=== PATIENT | male | born 1965 | race Two or more races ===

== ENCOUNTER 2020-05-08 06:35 | Outpatient (REF) | payer OTHER, SELFPAY ==
[2020-05-08 07:56] LABS: Alanine Aminotransferase 32 U/L (0-40); Albumin Level 4.2 g/dL (3.5-5.0); Alkaline Phosphatase 53 U/L (39-117); Anion Gap 12 (12-20); Aspartate Amino Transferase 23 U/L (5-37); Blood Urea Nitrogen 15 mg/dL (9-16); Calcium 8.7 mg/dL (8.4-10.2); Carbon Dioxide 28 mmol/L (22-29); Chloride 104 mmol/L (96-108); Cholesterol 215 mg/dL; Estimated Glomerular Filt Rate > 60; Glucose Fasting 98 mg/dL (60-99); HDL Cholesterol 37 mg/dL; LDL Cholesterol Calculated 149 mg/dl; Potassium 4.5 mmol/l (3.3-5.1); Sodium 139 mmol/L (135-145); Total Protein 7.1 g/dL (6.5-8.0); Triglycerides 149 mg/dL
== END 2020-05-08 06:36 | disposition home or self-care (01) ==
LOC: HO.LAB 06:35
PROVIDERS: PCP Internal Medicine; Visit Provider Internal Medicine
DX: E78.00 Pure hypercholesterolemia, unspecified (principal)
CPT/HCPCS: 80053; 80061

== ENCOUNTER 2021-05-07 06:48 | Outpatient (REF) | payer OTHER, SELFPAY ==
[2021-05-07 07:46] LABS: Alanine Aminotransferase 27 U/L (0-40); Albumin Level 4.3 g/dL (3.5-5.0); Alkaline Phosphatase 55 U/L (39-117); Anion Gap 11 (12-20); Aspartate Amino Transferase 17 U/L (5-37); Bilirubin Total 0.7 mg/dL (0.0-1.0); Blood Urea Nitrogen 16 mg/dL (9-16); Calcium 9.3 mg/dL (8.4-10.2); Carbon Dioxide 28 mmol/L (22-29); Chloride 107 mmol/L (96-108); Cholesterol 199 mg/dL; Estimated Glomerular Filt Rate > 60; Glucose Fasting 109 mg/dL (60-99); HDL Cholesterol 37 mg/dL; LDL Cholesterol Calculated 134 mg/dl; Sodium 141 mmol/L (135-145); Triglycerides 141 mg/dL
== END 2021-05-07 06:49 | disposition home or self-care (01) ==
LOC: HO.LAB 06:48
PROVIDERS: PCP Internal Medicine; Visit Provider Internal Medicine
DX: E78.5 Hyperlipidemia, unspecified (principal)
CPT/HCPCS: 36415; 80053; 80061

== ENCOUNTER 2022-04-25 09:24 | Emergency (ER) | payer OTHER, SELFPAY ==
[2022-04-25 09:47] VITALS: BP 149/87; PULSE 88; RESP 16; TEMP 38.3; O2SAT 97; BMI 32.3
[2022-04-25] MEDS: Ibuprofen 600 MG TABLET PO (09:57)
[2022-04-25 10:12] LABS: COVID-19 Test Positive (Negative)
[2022-04-25 10:21] LABS: IDNOW Serial# 16C4AD1C; Influenza A Negative (Negative); Influenza B2 Negative (Negative)
--- NOTE | 2022-04-25 10:29 | ED_ITS ---
HPI - General Adult General Chief complaint: Upper Respiratory Symptoms Stated complaint: Body pain, chills Time Seen by Provider: 04/25/22 10:28 Source: patient Mode of arrival: ambulatory Limitations: no limitations History of Present Illness HPI narrative: Patient is a 57 year old assigned male at with a history of dyslipidemia and ED presenting to the emergency department today feeling generally unwell. Patient states that since yesterday he has felt generally unwell. Patient states that he has been recently exposed to a confirmed COVID-19 positive individual. Patient denies any dizziness, lightheadedness, abdominal pain, nausea, vomiting, fever, blurry vision, double vision, loss of vision, chest pain, difficulty breathing, shortness of breath, back pain, night sweats, pain with urination, increased urinary frequency, increased urinary urgency, blood in his urine or stool, syncope or a near syncopal episode, recent trauma or falls, bowel incontinence, bladder incontinence, bowel retention, bladder retention, or any other complaints at this time. Onset (ago): day(s) (1) Severity: mild Severity scale (1-10): 2 Relieving factors: none Exacerbating factors: none Associated symptoms: cough and fever/chills Treatments prior to arrival: none Related Data Home Medications Medication Instructions Recorded Confirmed No Known Home Meds 05/08/21 05/08/21 Allergies Allergy/AdvReac Type Severity Reaction Status Date / Time No Known Allergies Allergy Verified 05/08/21 09:21 [No Known Allergies*] Review of Systems Constitutional: Constitutional: Reports no additional constitutional complaints, Reports chills, Denies fever(s) and Denies night sweats Eyes: Eyes: Reports no additional eye complaints, Denies blurry vision, Denies change in vision, Denies diplopia, Denies eye discharge, Denies loss of vision and Denies eye pain ENT: Denies dizziness Cardiovascular: Cardiovascular: Reports no additional cardiovascular complaints, Denies chest pain, Denies lightheadedness, Denies Loss of Consciousness and Denies dyspnea Respiratory: Respiratory: Reports no additional respiratory complaints, Reports cough and Denies dyspnea Gastrointestinal: Gastrointestinal: Reports no additional gastrointestinal complaints, Denies abdominal pain, Denies melena, Denies hematochezia, Denies change in bowel habits and Denies change in stool character Genitourinary: Genitourinary: Reports no additional male genitourinary complaints, Denies hematuria, Denies oliguria, Denies difficulty urinating, Denies dysuria, Denies urinary frequency, Denies urinary hesitancy, Denies urinary incontinence and Denies urinary urgency Musculoskeletal: Musculoskeletal: Reports no additional musculoskeletal complaints, Denies numbness and Denies tingling Neurologic: Denies dizziness, Denies loss of vision, Denies numbness and Denies tingling Psychiatric: Psychiatric: Reports no additional psychiatric complaints Endocrine: Endocrine: Reports no additional endocrine complaints Hematologic/Lymphatic: Hematologic/Lymphatic: Reports no additional hematologic/lymphatic complaints Allergic/Immunologic: Allergic/Immunologic: Reports no additional allergic/immunologic complaints [facility] Past Medical History Attestation statement: The following information was validated with the patient. Source: old records reviewed Medical History Dyslipidemia Erectile dysfunction Surgical History History of colonoscopy History of laparoscopic cholecystectomy History of removal of cyst Family History Family History Father Prostate cancer Mother CVD (cardiovascular disease) Maternal Uncle Colon cancer Paternal Uncle Colon cancer Social History Social History Housing: House Alcohol intake: current Alcohol intake frequency: a few times a month Alcohol type: beer Patient Tobacco Use Status: Never used Tobacco e-Cigarette/Vaping Use: Never Used Second Hand Smoke Exposure: No Advance Directives: No service: No Current occupational status: employed Current occupational exposures/hazards: No Physical Exam ED Vital Signs: Vital Signs - 24 hr 04/25/22 09:47 Temperature 101.0 F H Pulse Rate 88 Respiratory Rate 16 Blood Pressure 149/87 H Pulse Oximetry 97 Oxygen Delivery Method Room Air BMI result Body Mass Index 32.3 Const General: cooperative, no acute distress, alert and awake Nutritional Appearance: well nourished Orientation/consciousness: patient oriented x3 Limitations: no limitations HENMT Head: Yes normal to inspection and Yes atraumatic Ears: hearing grossly normal bilaterally and external ears normal General nose exam: Normal external nose present, no nasal discharge noted and no epistaxis Face and sinus: Yes normal facial exam, No abrasion and No laceration Mouth: Normal oral and palatal mucosa present, no drooling and no muffled voice Eyes General: appearance normal, both eyes and all related structures Periorbital: periorbital findings normal Eyelids: Yes eyelids normal Conjunctivae: conjunctivae normal Pupils: Equal, round and reactive pupils present EOM: EOMs intact bilaterally Neck Neck: Yes normal visual inspection, Yes full ROM and Yes no lymphadenopathy Chest Chest palpation & inspection: normal inspection of the chest Resp Effort & Inspection: normal respiratory effort and able to speak in complete sentences Auscultation: clear to auscultation bilaterally Cardio Rate: regular rate Rhythm: regular rhythm GI Inspection: Yes normal to inspection Neuro General: patient oriented x3 and moves all extremities Cranial nerves: Yes Equal, round and reactive pupils present Cognition (Neuro): normal cognition Motor exam (neuro): 5/5 motor strength present throughout Sensory Exam: Normal double simultaneous stimulation for sensation Coordination: [id number] test normal Extrem General: Yes normal to inspection, Yes full ROM and Yes capillary refill normal Psych Appearance: grossly normal Mental Status: mental status grossly normal Affect: normal affect Attitude: cooperative Thought process: Normal thought process present Thought content: Normal thought content present Insight: Good insight present (Psych) Medical Decision Making MDM Narrative Medical decision making narrative: Patient is a 57 year old assigned male at with a history of dyslipidemia and ED presenting to the emergency department today with a cough and chills. Patient's physical exam was unremarkable. Patient's rapid COVID-19 test was pos itive. I explained my physical exam findings as well as all test results to the patient. I answered all questions asked by the patient. I stressed the importance of the patient taking his medication as prescribed. I stressed the importance of the patient following up with his primary care provider. I stressed the importance of the patient returning to the emergency department immediately if his symptoms were to worsen or if he were to develop any dizziness, shortness of breath, difficulty breathing, chest pain, blurry vision, loss of vision, nausea, vomiting, abdominal pain, fever, chills, back pain, or any other complaints. Patient verbalized agreement and understanding with this treatment plan and discharge. Medical Records Medical records reviewed: Yes I reviewed the patient's medical records. Lab Data Lab results reviewed: Yes I reviewed the patient's lab results. Labs: Lab Results 04/25/22 04/25/22 Range/Units 09:57 09:57 COVID-19 ([facility]) Positive A (Negative) COVID-19 Clin Com See Note Influenza Type A ([facility]) Negative (Negative) Influenza Type B ([facility]) Negative (Negative) Influenza A & B Note See Note Discharge Plan Discharge Clinical Impression: COVID-19 Patient Disposition: Home, Self-Care Instructions: COVID-19 (Coronavirus Disease 2019) (ED) Additional Instructions: Follow up with your primary care provider. Return to the emergency department immediately if your symptoms worsen or if you develop any dizziness, shortness of breath, difficulty breathing, chest pain, blurry vision, loss of vision, nausea, vomiting, abdominal pain, fever, chills, back pain, or any other complaints. Prescriptions: No Action No Known Home Meds Referrals: Karen Lombardi MD [Primary Care Provider] - Stand Alone Forms: Work/School Release Interventions: ED Discharge Assessment Last Done: 04/25/22 10:50 Discharge Date/Time: 04/25/22 10:52 Print Language: German
== END 2022-04-25 10:52 | disposition home or self-care (01) ==
PROVIDERS: Emergency Provider Emergency Medicine; PCP Internal Medicine
DX: U07.1 COVID-19 (principal); R50.9 Fever, unspecified
CPT/HCPCS: 87502; 87635; 99283

== ENCOUNTER 2022-05-20 12:47 | Outpatient (REF) | payer OTHER, SELFPAY ==
--- NOTE | ~2022-05-20 | US_ITS ---
EXAMINATION: US ABDOMEN LIMITED CLINICAL INFORMATION: Umbilical hernia without obstruction or gangrene. COMPARISON: CT abdomen with intravenous contrast dated 05/14/2008. TECHNIQUE: Real-time imaging of the umbilical area. FINDINGS: Imaging over the umbilical region reveals a small umbilical hernia containing intraperitoneal fat and peritoneum. The umbilical hernia is 2.02 cm wide at the neck. US/US abdomen limited IMPRESSION: Small umbilical hernia containing fat and peritoneum.
== END 2022-05-20 12:48 | disposition home or self-care (01) ==
LOC: HO.HMGCX 12:47
PROVIDERS: PCP Internal Medicine; Visit Provider Internal Medicine
DX: K42.9 Umbilical hernia without obstruction or gangrene (principal)
CPT/HCPCS: 76705

== ENCOUNTER 2022-05-22 09:56 | Outpatient (REF) | payer OTHER, SELFPAY ==
[2022-05-22 10:17] LABS: MANUAL DIFF FLAG NO
[2022-05-22 10:30] LABS: Basophils Percent Auto 0.6 % (0-2); Eosinophils Absolute Auto 0.3 X10*3/uL (0.0-0.4); Eosinophils Percent Auto 5.3 % (0-4); Hematocrit 47.8 % (42.0-52.0); Hemoglobin 15.3 g/dl (14.0-18.0); Imm Gran Abs Auto 0.03 X10*3/uL (0.00-0.03); Imm Gran Pct Auto 0.5 % (0.0-0.4); Lymphocytes Absolute Auto 1.6 X10*3/uL (1.2-4.9); Lymphocytes Percent Auto 26.5 % (20-40); Mean Corpuscular Hemoglobin 27.6 pg (27.0-33.0); Mean Corpuscular Volume 86.1 fL (80.0-98.0); Mean Platelet Volume 10.5 fL (9.4-12.4); Monocytes Absolute Auto 0.4 X10*3/uL (0.1-1.2); Monocytes Percent Auto 6.3 % (2-11); Neutrophils Absolute Auto 3.8 x10*3/uL (2.0-8.3); Neutrophils Percent Auto 60.8 % (45-73); Platelet Count 207 X10*3/uL (160-400); Red Blood Count 5.55 X10*6/uL (4.60-5.80); Red Cell Distribution Width 13.1 % (11.0-16.0); White Blood Count 6.2 X10*3/uL (4.8-10.8)
[2022-05-22 10:37] LABS: Estimated Average Glucose 117 mg/dL; Hemoglobin A1c % 5.7 %
[2022-05-22 12:53] LABS: Alanine Aminotransferase 24 U/L (0-40); Albumin Level 4.4 g/dL (3.5-5.0); Alkaline Phosphatase 55 U/L (39-117); Anion Gap 11 (12-20); Aspartate Amino Transferase 17 U/L (5-37); Bilirubin Total 0.8 mg/dL (0.0-1.0); Blood Urea Nitrogen 18 mg/dL (9-16); Calcium 9.4 mg/dL (8.4-10.2); Carbon Dioxide 28 mmol/L (22-29); Chloride 108 mmol/L (96-108); Cholesterol 244 mg/dL; Estimated Glomerular Filt Rate > 60; Glucose Fasting 99 mg/dL (60-99); Glucose Random 99 mg/dL (60-115); HDL Cholesterol 40 mg/dL; LDL Cholesterol Calculated 178 mg/dl; PSA,Total (Free>4and<10) 4.95 ng/mL (0.00-4.00); Sodium 142 mmol/L (135-145); Total Protein 7.3 g/dL (6.5-8.0); Triglycerides 130 mg/dL
[2022-05-24 19:02] LABS: TS Negative Control Passed; TS Panel A 0; TS Panel B 3; TS Positive Control Passed; TSpotTB Negative (Negative)
[2022-05-25 10:44] LABS: Free Prostate Spec Ag 0.8 ng/mL; Percent Free Prostate Spec Ag 17 % (calc) (>25); Prostate Specific Ag Total 4.6 ng/mL (< OR = 4.0)
== END 2022-05-22 09:57 | disposition home or self-care (01) ==
LOC: HO.LAB 09:56
PROVIDERS: PCP Internal Medicine; Visit Provider Surgery
DX: Z00.00 Encounter for general adult medical examination without abnormal findings (principal); Z11.1 Encounter for screening for respiratory tuberculosis; Z12.5 Encounter for screening for malignant neoplasm of prostate; K42.9 Umbilical hernia without obstruction or gangrene; M62.08 Separation of muscle (nontraumatic), other site; E66.01 Morbid (severe) obesity due to excess calories; E78.5 Hyperlipidemia, unspecified
CPT/HCPCS: 36415; 80053; 80061; 83036; 84153; 84154; 85025; 86481; 99202

== ENCOUNTER → 2022-05-28 14:28 | Outpatient (BNVA) | payer OTHER, SELFPAY | PROVIDERS: PCP Internal Medicine; Visit Provider Surgery | DX: K42.9 Umbilical hernia without obstruction or gangrene (principal); E78.00 Pure hypercholesterolemia, unspecified; E78.5 Hyperlipidemia, unspecified | CPT/HCPCS: 99212 ==

== ENCOUNTER 2022-07-02 05:58 | Day surgery (SDC) | payer OTHER, SELFPAY ==
[2022-06-29 13:19] VITALS: BMI 32.4
--- NOTE | 2022-07-01 09:04 | P.CONAN_ITS ---
Documented by User: Lakisha Chawla NP 07/13/22 15:04 HPI - Anesthesia Eval Consult details Narrative: 57yo M for Hernia Repair Umbilical,possible mesh,possible umbilectomy PMFSH Active Problems Active Problems: All Active Problems (Updated 06/29/22 @ 13:19 by Emilia Hi RN) Conjunctivitis (Acute) Blepharitis (Acute) COVID-19 (Acute) Encounter for physical examination (Acute) Umbilical hernia (Acute) Morbid (severe) obesity due to excess calories (Acute) Diastasis recti (Acute) Elevated PSA (Acute) High cholesterol (Acute) Serum lipids high (Acute) Erectile dysfunction (Acute) Dyslipidemia (Acute) Past Medical History Medical History (Updated 07/09/22 @ 15:32 by LEONARD Ball) Dyslipidemia Erectile dysfunction History of COVID-19 Family History Family History Father Prostate cancer Mother CVD (cardiovascular disease) Maternal Uncle Colon cancer Paternal Uncle Colon cancer Surgical History Surgical History (Updated 07/09/22 @ 22:08 by LEONARD Ball) H/O umbilical hernia repair History of colonoscopy History of laparoscopic cholecystectomy History of removal of cyst Social History Social History Housing: House Alcohol intake: current Alcohol intake frequency: a few times a month Alcohol type: beer Patient Tobacco Use Status: Never used Tobacco e-Cigarette/Vaping Use: Never Used Second Hand Smoke Exposure: No service: No Current occupational status: employed Current occupational exposures/hazards: No Cognitive needs: No Hearing needs: No Vision needs: Yes Meds Allergies Allergy/AdvReac Type Severity Reaction Status Date / Time No Known Allergies Allergy Verified 07/10/22 09:54 [No Known Allergies*] Exam Exam Date and Time: July 01, 2022 0904 Height,Weight and Vital Signs: Height 5 ft 4 in Weight 85.729 kg Pertinent Lab Results Pertinent Lab Results: Laboratory Tests 05/22/22 05/22/22 10:16 10:16 WBC 6.2 Hgb 15.3 Hct 47.8 Plt Count 207 Sodium 142 Potassium 5.0 Chloride 108 Carbon Dioxide 28 BUN 18 H Creatinine 0.86 Documented by User: Sharan Jiménez MD 07/14/22 05:08 [facility] Past Medical History Medical History (Updated 07/09/22 @ 15:32 by LEONARD Ball) Dyslipidemia Erectile dysfunction History of COVID-19 Family History Family History Father Prostate cancer Mother CVD (cardiovascular disease) Maternal Uncle Colon cancer Paternal Uncle Colon cancer Family history of problems with anesthesia: No Surgical History Surgical History (Updated 07/09/22 @ 22:08 by LEONARD Ball) H/O umbilical hernia repair History of colonoscopy History of laparoscopic cholecystectomy History of removal of cyst History of Problems with Anesthesia: No Social History Social History Housing: House Alcohol intake: current Alcohol intake frequency: a few times a month Alcohol type: beer Patient Tobacco Use Status: Never used Tobacco e-Cigarette/Vaping Use: Never Used Second Hand Smoke Exposure: No service: No Current occupational status: employed Current occupational exposures/hazards: No Cognitive needs: No Hearing needs: No Vision needs: Yes Meds Allergies Allergy/AdvReac Type Severity Reaction Status Date / Time No Known Allergies Allergy Verified 07/10/22 09:54 [No Known Allergies*] Exam Airway Mallampati Class: II TM Dist: >3cm Neck ROM: Full Heart: RRR Lungs: CTA Assessment and Plan Final Anesthetic Review Family History of Problems with Anesthesia: No History of Problems with Anesthesia: No NPO: Yes ASA Class: II Final Preanesthetic Review: No Changes in Pt Med Stat, Meds/Allgs Chart Reviewed, Consent Obtained/Reviewed and Anes Risks/Benef Reviewed Patient Risk: Intermediate Anesthetic Plan Anesthetic Plan: GA Disposition: Standard PACU
[2022-07-02] VITALS (8 sets, daily range): BP systolic 110–137; BP diastolic 60–80; PULSE 56–81; RESP 16–18; TEMP 36.3–36.5; O2SAT 96–99; BMI 30.9
--- NOTE | 2022-07-02 07:20 | MHC.SHP ---
Pre-Procedural Eval Section A Date of Service: 07/02/22 The patient is an INPATIENT: No The History & Physical has been completed within 30 days and I have reviewed it.: No Section B Chief Complaint: Umbilical hernia without obstruction or gangrene Relevant Family History (Specify if Yes): No Relevant Social History: None Present Medications: see Short Stay Collaborative assessment Medical History: No relevant PMH History of Previous Operations: Relevant previous surgery/procedure and date(s) Allergies: Allergies Allergy/AdvReac Type Severity Reaction Status Date / Time No Known Allergies Allergy Verified 05/28/22 14:33 [No Known Allergies*] Review of Systems Sugical H&P ROS: Negative: Constitution, Cardiovascular, Respiratory, Neurological, Psychiatric, Hem-Onc, Allergic/Immunologic, Gastrointestinal, Genitourinary, Musculoskeletal, Integumentary, Endocrine and Eyes/Ears/Nose/Throat Exam Surgical H&P Exam: Normal: HEENT, Normal: Heart, Normal: Lungs, Normal: Extremities, Normal: Skin and Normal: Neurological and Not Evaluated: Abdomen (reducible UH) Plan Diagnosis/Plan: Unchanged I have reviewed the history and physical and performed a pertinent physical examination on my patient. No changes have occurred unless specified. Time Spent With Patient Time: Total time managing care of this patient today ____ minutes.
--- NOTE | 2022-07-02 07:22 | W.PM.OPN ---
Operative Note Operative Note Date of Service: 07/02/22 Narrative: Preop diagnosis: [reducible hernia at umbilicus] Postop diagnosis: [2.5cm umbilical hernia with viable fat] Procedure: [Open umbilical hernia repair of a 2.5 cm hernia with primary closure and onlay mesh] Surgeon: Sebastian Riddle MD Assist: [] Anesthesia: [general LMA and ropivacaine as local] Estimated blood loss: [3cc] Specimen: [none] Intraoperative findings: [The umbilical skin was viable. Viable properitoneal fat was in the hernia and reduced. Primary closure with #1 Polypropylene was performed and polypropylene onlay mesh.] Indications: [The patient is a 57-year-old gentleman who reports a distant history of a laparoscopic cholecystectomy in 2000. The hernia is slowly getting larger and causing trophic skin changes and since it is symptomatic, he is interested in repair. I reviewed options including laparoscopic and open repair and the possible need for mesh as well as the inherent risks of bleeding, infection, hernia recurrence especially if weight gain occurs, mesh complications that could require reoperation, and postoperative activity restrictions. Patient seemed understand and wanted to proceed.] Procedure: [The patient was identified by myself in the preoperative holding area brought into the operating suite and again identified in OR room 3. 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 He was induced in general via LMA was administered with excellent effect. His abdomen was then widely prepped and draped with ChloraPrep. An appropriate timeout confirming the procedure the equipment needed was performed and preemptive local of ropivacaine 0.5% infiltrated in the skin and subcutaneous tissues. A curvilinear infraumbilical incision was made sharply and carried down to the anterior fascia. The hernia defect was carefully circumferentially dissected and the properitoneal fat reduced. The hernia sac was excised and discarded in a transverse closure of the 2.5 cm defect was performed and polypropylene onlay mesh technique used. The mesh was secured with 0 polypropylene sutures the subcutaneous tissues closed on the dermis then examined and found to be viable so the skin was closed with interrupted 4-0 Monocryl subcuticular sutures. There was then washed and dried, Mastisol and Steri-Strips applied with a cotton ball in the umbilicus and a Tegaderm. Patient tolerated the procedure well and was sent to the recovery in stable condition.]
[2022-07-02] MEDS: oxyCODONE HCl Immed Release 5 MG TABLET PO (09:07)
[2022-07-02] MEDS: Acetaminophen 325 MG TABLET 650 MG PO (09:15)
== END 2022-07-02 10:41 | disposition home or self-care (01) ==
PROVIDERS: PCP Internal Medicine; Visit Provider Surgery
PROC: (CPT 49591; principal; 2022-07-02 07:30)
DX: K42.9 Umbilical hernia without obstruction or gangrene (principal); E78.00 Pure hypercholesterolemia, unspecified; N52.9 Male erectile dysfunction, unspecified; Z79.899 Other long term (current) drug therapy; Z90.49 Acquired absence of other specified parts of digestive tract
CPT/HCPCS: 49591; C1781; J0690; J1100; J1885; J2405; J2795; J3010

== ENCOUNTER → 2022-07-09 14:34 | Outpatient (BNVA) | payer OTHER, SELFPAY | PROVIDERS: PCP Internal Medicine; Visit Provider Nurse Practitioner Family | DX: R97.20 Elevated prostate specific antigen [PSA] (principal); N52.9 Male erectile dysfunction, unspecified | CPT/HCPCS: 99202 ==

== ENCOUNTER → 2022-07-10 09:46 | Outpatient (BNVA) | payer OTHER, SELFPAY | PROVIDERS: PCP Internal Medicine; Visit Provider Surgery | DX: Z13.89 Encounter for screening for other disorder (principal) ==

== ENCOUNTER 2022-07-23 13:14 | Outpatient (REF) | payer OTHER, SELFPAY | END 2022-07-23 13:15 | disposition home or self-care (01) | LOC: HO.US 13:14 | PROVIDERS: PCP Internal Medicine; Visit Provider Nurse Practitioner Family | DX: Z13.89 Encounter for screening for other disorder (principal) ==

== ENCOUNTER 2022-08-11 14:23 | Outpatient (REF) | payer OTHER, SELFPAY ==
--- NOTE | ~2022-08-11 | US_ITS ---
EXAMINATION: US PELVIS LIMITED (BLADDER) CLINICAL INFORMATION: Elevated prostate-specific antigen. COMPARISON: None TECHNIQUE: Real-time imaging of the bladder. FINDINGS: BLADDER: Well distended and normal. Bilateral ureteral jets are demonstrated. Prevoid bladder volume is 231 mL. Postvoid bladder volume is 151 mL. Enlarged prostate, volume 102 mL. US/US bladder IMPRESSION: 1. Increased post void urinary bladder volume. 2. Enlarged prostate.
== END 2022-08-11 14:24 | disposition home or self-care (01) ==
LOC: HO.US 14:23
PROVIDERS: Visit Provider Nurse Practitioner Family
DX: R97.20 Elevated prostate specific antigen [PSA] (principal)
CPT/HCPCS: 76857

== ENCOUNTER 2022-08-17 06:05 | Outpatient (REF) | payer OTHER, SELFPAY ==
[2022-08-17 08:43] LABS: PSA,Total (Free>4and<10) 5.26 ng/mL (0.00-4.00)
[2022-08-18 11:23] LABS: Free Prostate Spec Ag 1.1 ng/mL; Percent Free Prostate Spec Ag 22 % (calc) (>25); Prostate Specific Ag Total 4.9 ng/mL (< OR = 4.0)
== END 2022-08-17 06:06 | disposition home or self-care (01) ==
LOC: HO.LAB 06:05
PROVIDERS: PCP Internal Medicine; Visit Provider Nurse Practitioner Family
DX: Z12.5 Encounter for screening for malignant neoplasm of prostate (principal); R97.20 Elevated prostate specific antigen [PSA]; R35.1 Nocturia
CPT/HCPCS: 36415; 84153; 84154; 99212

== ENCOUNTER 2022-11-28 07:12 | Outpatient (REF) | payer OTHER, SELFPAY ==
[2022-11-28 08:47] LABS: PSA,Total (Free>4and<10) 2.57 ng/mL (0.00-4.00)
== END 2022-11-28 07:13 | disposition home or self-care (01) ==
LOC: HO.LAB 07:12
PROVIDERS: PCP Internal Medicine; Visit Provider Nurse Practitioner Family
DX: Z12.5 Encounter for screening for malignant neoplasm of prostate (principal); R97.20 Elevated prostate specific antigen [PSA]
CPT/HCPCS: 36415; 84153

== ENCOUNTER → 2022-12-07 09:03 | Outpatient (BNVA) | payer OTHER, SELFPAY | PROVIDERS: PCP Internal Medicine; Visit Provider Nurse Practitioner Family | DX: N40.0 Benign prostatic hyperplasia without lower urinary tract symptoms (principal); R97.20 Elevated prostate specific antigen [PSA] | CPT/HCPCS: 99212 ==

== ENCOUNTER 2023-05-18 07:15 | Outpatient (AMB) | payer OTHER, SELFPAY ==
[2023-05-18 07:33] VITALS: BP 130/86; BMI 33.1
--- NOTE | 2023-05-18 07:33 | A.OFFPC_ITS ---
Vital Signs 05/18/23 07:33 Height 5 ft 3 in Weight 187 lb BMI 33.1 BP 130/86 Blood Pressure Location Lt brachial Position Sitting Intake Visit Reasons: PE+ NEEDS PHQ9/THRIVE Intake Note: Patient here for a physical exam Egg And Spice Mixer Required: No Accompanied by: Self / Same As Patient Allergies No Known Allergies [No Known Allergies*] Allergy (Verified 05/18/23 07:42) Medication List - Last Reconciled 05/18/23 by Karen Mcintosh MD finasteride 5 mg PO DAILY 90 days ibuprofen 600 mg PO TID PRN 30 days Tobacco use date assessed: 05/18/23 Dental Screening Dental Screen Date: 05/18/23 Did you have a dental visit in the last 12 months?: Yes Did you have a dental problem in the last 6 months where you did not have access to dental care?: No Was dental information given to patient?: Patient has dentist HPI HPI Comments History of Present Illness Details This is a 58-year-old male that comes for his physical exam. Last colonoscopy was 2016 next colonoscopy should be 2026. Complains about bilateral knee pain and lumbar pain that does radiate to the legs. Happens on. Aggravated by activity no fever, bowel or bladder incontinence. PFSH Medical History History of COVID-19 Erectile dysfunction Dyslipidemia Surgical History H/O umbilical hernia repair History of colonoscopy History of removal of cyst History of laparoscopic cholecystectomy Family History Father Prostate cancer Mother CVD (cardiovascular disease) Maternal Uncle Colon cancer Paternal Uncle Colon cancer Housing: House Alcohol intake: current Alcohol intake frequency: a few times a month Alcohol type: beer Patient Tobacco Use Status: Never used Tobacco e-Cigarette/Vaping Use: Never Used Second Hand Smoke Exposure: No service: No Current occupational status: unemployed Current occupational exposures/hazards: No Cognitive needs: No Hearing needs: No Vision needs: Yes Questionnaire PHQ-9 Over the last 2 weeks, how often have you been bothered by any of the following problems? 1. Little interest or pleasure in doing things: not at all 2. Feeling down, depressed, or hopeless: not at all 3. Trouble falling or staying asleep, or sleeping too much: not at all 4. Feeling tired or having little energy: not at all 5. Poor appetite or overeating: not at all 6. Feeling bad about yourself - or that you are a failure or have let yourself or your family down: not at all 7. Trouble concentrating on things, such as reading the newspaper or watching television: not at all 8. Moving or speaking so slowly that other people could have noticed. Or the opposite - being so fidgety or restless that you have been moving around a lot more than usual: not at all 9. Thoughts that you would be better off or of hurting yourself in some way: not at all Total score: 0 Depression Screening Interpretation: Negative Depression Screening Done: Yes 83394 - PHQ-9 Billing: Yes Source: Developed by Drs. Jerald Sutton, Luna Anderson, Guillaume Álvarez and colleagues, with an educational shad from [employer]. Thrive Questionnaire Date Thrive assessed: 05/18/23 I am a: Patient What is your living situation today?: I have a steady place to live Within the past 12 months, did the food you bought not last and you didn't have the money to get more?: Never true Within the past 12 months, did you worry whether your food would run out before you got money to buy more?: Never true Do you have trouble paying for medicines?: No Do you have trouble getting transportation to medical appointments?: No Do you have trouble paying your heating and electricity bill?: No Do you have trouble taking care of your child, family member or friend?: No Do you have trouble with day-to-day activities such as bathing, preparing meals, shopping, managing finances, etc.?: No Are you currently unemployed and looking for a job?: No Are you interested in more education?: No Please select the resources that you would like help with: None Currently or been in a relationship where the following occur: no concerns reported AUDIT C Alcohol Use Questionnaire (AUDIT-C) 1. How often do you have a drink containing alcohol?: Monthly or less 2. How many drinks containing alcohol do you have on a typical day when you are drinking?: 1 or 2 3. How often do you have six or more drinks on one occasion?: Never Total Score: 1 Score Reviewed/Action Taken: Yes NOLVIA-7 AMB Questionnaire NOLVIA-7 Date NOLVIA - 7 assessed: 05/18/23 Feeling nervous, anxious, or on edge: 0 = Not at all Not being able to stop or control worryin = Not at all Worrying too much about different things: 0 = Not at all Trouble relaxin = Not at all Being so restless that it is hard to sit still: 0 = Not at all Becoming easily annoyed or irritable: 0 = Not at all Feeling afraid as if something awful might happen: 0 = Not at all Total NOLVIA-7 score (0-4 normal; 5-9 mild; 10-14 moderate; 15-21 severe): 0 Source: Developed by Drs. Jerald Sutton, Luna Anderson, Guillaume Álvarez and colleagues, with an educational shad from [employer]. NOLVIA-7 Assessment Billing NOLVIA-7 Assessment Tool: NOLVIA-7 Assessment 91882 Review of Systems Const All systems reviewed & are unremarkable except as noted in HPI and below Eyes Reports no additional complaints, Denies change in vision and Denies other visual disturbances Card Denies chest pain at rest, Denies chest pain with activity, Denies edema, Denies irregular heart rhythm, Denies claudication, Denies dyspnea, Denies dyspnea on exertion, Denies orthopnea, Denies paroxysmal nocturnal dyspnea and Denies slow heart rate Resp Denies cough, Denies dyspnea and Denies dyspnea on exertion GI Denies abdominal pain, Denies change in bowel habits, Denies excessive flatus, Denies nausea and Denies vomiting Denies urinary hesitancy, Denies urinary incontinence and Denies urinary urgency Musc Denies abnormal gait, Reports back pain, Denies atrophy, Denies deformity, Reports arthralgias and Denies limited range of motion Skin/Breast Denies bleeding lesions, Denies changing lesions and Denies rash Neuro Denies abnormal gait, Denies behavioral changes, Denies confusion and Denies lack of coordination Psych Denies behavioral changes and Denies confusion Physical exam (Primary Care) Vital Signs: Last Vital Signs BP 130/86 05/18/23 07:33 BMI result Body Mass Index 33.1 Tobacco/Smoking Status: Tobacco use Status Tobacco use date assessed 05/18/23 05/18/23 07:37 Patient Tobacco Use Status Never used Tobacco 05/18/23 07:37 e-Cigarette/Vaping Use Never Used 05/18/23 07:37 PHQ-9: PHQ-9 Score PHQ-9: Total score 0 05/18/23 08:19 Depression Screening Interpretation: Negative Thrive Assessment: Date of Thrive Assessment Date Thrive assessed 05/18/23 05/18/23 07:37 Currently or been in a relationship where the following occur: no concerns reported Const General: No confusion Orientation/consciousness: patient oriented x3 and No confusion HENMT Head: Yes normal to inspection, Yes normocephalic and Yes atraumatic Ears: external ears normal Eyes General: appearance normal, both eyes and all related structures Eyelids: Yes eyelids normal Conjunctivae: conjunctivae normal Neck Neck: Yes normal visual inspection and Yes supple Resp Effort & Inspection: normal respiratory effort Auscultation: clear to auscultation bilaterally Cardio Jugular venous distension: no JVD Rate: regular rate Rhythm: regular rhythm Heart sounds: S1 normal heart sound present and S2 normal heart sound present GI Inspection: Yes normal to inspection Palpation (GI): Soft to palpation and nontender Auscultation: normal bowel sounds Skin General skin exam: no rashes or lesions noted Neuro General: patient oriented x3, no focal motor deficits and No confusion Extrem General: Yes full ROM Psych Appearance: grossly normal Office Procedures Flu Questionnaire Does the patient have a severe egg allergy?: No Does the patient have severe life threatening allergies?: No Does the patient have a fever or illness today?: No Has the patient ever had Guillain-[place] Syndrome?: No Has the patient ever had any past reaction to a flu shot?: No Immunizations flu vacc [id number] 6mos up(PF) 60 mcg(15 mcgx4)/0.5 mL IM syringe Performing Provider: Karen Mcintosh MD [facility] Administered by: Lise Welch CMA on 05/18/23 07:52 Dose Route Admin Location Dispensed Lot Number Expiration Date [employer] 0.5 mL IM Left Deltoid 0.5 mL [id number] 12/19/23 59169-016-82 [facility] VIS Given Date VIS Provided VIS Publication Date 05/18/23 Single Vaccine 21 Eligibility Eligibility Date Funding Source Not VFC Eligible 05/18/23 Private Assessment and Plan Assessment & Plan (1) Encounter for physical examination: Code(s): Z00.00 - Encounter for general adult medical examination without abnormal findings Plan: Repeat in a year. Orders: Orders XR lumbar spine 2-3V Today M54.50 - Low back pain, unspecified XR knee LT 2V Today M25.562 - Pain in left knee XR knee RT 2V Today M25.561 - Pain in right knee Lipid Panel Today Z00.00 - Encounter for general adult medical examination without abnormal findings Comprehensive [place]. Panel Fast Today Z00.00 - Encounter for general adult medical examination without abnormal findings Influenza [id number] Immunization Today Z23 - Encounter for immunization Coding Level of Care Code Est Pt Prev Care 40-64y(58656) Diagnoses Encounter for physical examination Z00.00 Additional Codes NOLVIA-7 Assessment Billing - NOLVIA-7 Assessment Tool: NOLVIA-7 Assessment 00045 ([id number]) Time Spent (min) 32
== END 2023-05-18 07:58 | disposition home or self-care (01) ==
PROVIDERS: Visit Provider Internal Medicine
DX: Z00.00 Encounter for general adult medical examination without abnormal findings (principal); Z23 Encounter for immunization
CPT/HCPCS: 90471; 90686; 99396

== ENCOUNTER → 2023-06-07 08:25 | Outpatient (BNVA) | payer OTHER, SELFPAY | PROVIDERS: PCP Internal Medicine; Visit Provider Nurse Practitioner Family ==

== ENCOUNTER 2023-06-08 06:51 | Outpatient (REF) | payer OTHER, SELFPAY ==
--- NOTE | ~2023-06-08 | XR_ITS ---
EXAMINATION: Bilateral knee series CLINICAL INFORMATION: Bilateral knee pain COMPARISON: X-rays of the right knee March 2019. X-rays of the left knee December 2015. TECHNIQUE: 2 views of each knee FINDINGS: Right knee: Bones joints and soft tissues are normal without effusion. Left knee: There is a prominent spur arising from the tibial tuberosity. The bones joints and soft tissues are otherwise unremarkable. XR/XR knee RT 2V IMPRESSION: RIGHT KNEE: Normal. LEFT KNEE: Prominent spur arising from the tibial tuberosity. Unchanged
--- NOTE | ~2023-06-08 | XR_ITS ---
EXAMINATION: Bilateral knee series CLINICAL INFORMATION: Bilateral knee pain COMPARISON: X-rays of the right knee March 2019. X-rays of the left knee December 2015. TECHNIQUE: 2 views of each knee FINDINGS: Right knee: Bones joints and soft tissues are normal without effusion. Left knee: There is a prominent spur arising from the tibial tuberosity. The bones joints and soft tissues are otherwise unremarkable. XR/XR knee LT 2V IMPRESSION: RIGHT KNEE: Normal. LEFT KNEE: Prominent spur arising from the tibial tuberosity. Unchanged
[2023-06-08 08:19] LABS: Alanine Aminotransferase 27 U/L (0-40); Albumin Level 4.2 g/dL (3.5-5.0); Alkaline Phosphatase 54 U/L (39-117); Anion Gap 13 (12-20); Aspartate Amino Transferase 20 U/L (5-37); Blood Urea Nitrogen 18 mg/dL (9-16); Calcium 9.1 mg/dL (8.4-10.2); Carbon Dioxide 26 mmol/L (22-29); Chloride 109 mmol/L (96-108); Cholesterol 227 mg/dL (<200); Estimated Glomerular Filt Rate > 60; Glucose Fasting 101 mg/dL (60-99); HDL Cholesterol 42 mg/dL (>40); LDL Cholesterol Calculated 154 mg/dL (<100); Potassium 4.6 mmol/L (3.3-5.1); Sodium 143 mmol/L (135-145); Total Protein 7.2 g/dL (6.5-8.0); Triglycerides 159 mg/dL (<150)
[2023-06-08 08:37] LABS: PSA,Total (Free>4and<10) 4.19 ng/mL (0.00-4.00)
[2023-06-09 12:14] LABS: Free Prostate Spec Ag 0.5 ng/mL; Percent Free Prostate Spec Ag 12 % (calc) (>25); Prostate Specific Ag Total 4.1 ng/mL (< OR = 4.0)
== END 2023-06-08 06:52 | disposition home or self-care (01) ==
LOC: HO.XRAY 06:51
PROVIDERS: Absent Provider Nurse Practitioner Family; PCP Internal Medicine; Visit Provider Internal Medicine
DX: M25.562 Pain in left knee (principal); M25.561 Pain in right knee; M54.50 Low back pain, unspecified; R97.20 Elevated prostate specific antigen [PSA]; Z12.5 Encounter for screening for malignant neoplasm of prostate; Z00.00 Encounter for general adult medical examination without abnormal findings
CPT/HCPCS: 36415; 72100; 73560; 80053; 80061; 84153; 84154

== ENCOUNTER 2023-06-11 08:24 | Outpatient (AMB) | payer OTHER, SELFPAY ==
--- NOTE | 2023-06-11 08:35 | A.OFFVIS_ITS ---
Intake Intake Visit Reasons: 6m/labs Intake Note: Patient is present for follow up PSA (psa 4.19) Urology Medications: finasteride Blood Thinners: none Concrete Smoother Required: No Accompanied by: Self / Same As Patient Allergies No Known Allergies [No Known Allergies*] Allergy (Verified 06/12/23 12:08) Medication List - Last Reconciled 06/11/23 by LEONARD Ball finasteride 5 mg PO DAILY 90 days ibuprofen 600 mg PO TID PRN 30 days HPI HPI Comments History of Present Illness Details Tristin is a pleasant 58 year old French speaking male patient of Dr. Ross. He presents to the office today for a follow up of his elevated PSA. When asked patient reports to be doing and feeling well. During last office visit discussion regarding continuation of finasteride verses prostate biopsy was discussed at which time patient wished to continue with finasteride 5 mg daily. Recent PSA results reviewed with the patient today. PSAs are as follows PSA: 04/08--2.0 06/11-- 5.0 06/11-- 4.6 08/13--5.3 12/11--2.6 06/12--4.2 and % free PSA 12% When asked he reports compliance with finasteride 5 mg daily. Discussed at length bump/increase in PSA. Discussed further assessment evaluation with prostate biopsy verses redraw versus surveillance monitoring. Risks and benefits of these interventions were discussed at length. Previous workup has include a bladder ultrasound noting an enlarged prostate with a volume of 102 mL. In office UA results reviewed with the patient today. He denies any bothersome urinary issues or concerns at this time. He denies urinary urgency, urinary frequency, incontinence, nocturia, hematuria, dysuria, foul smelling urine, changes to urinary stream, flank pain, fever, and or chills. He is happy with his current voiding parameters. He otherwise offers no issues or concerns at this time. IRMA offered however deferred. Patient does have a family history of prostate cancer. Discussed PCPT risk calculator results; 51% chance prostate biopsy negative, 38% prostate biopsy positive for low-grade prostate cancer, and 11% chance prostate biopsy positive for high risk prostate cancer given most recent PSA results. [facility] Medical History History of COVID-19 Erectile dysfunction Dyslipidemia Surgical History H/O umbilical hernia repair History of colonoscopy History of removal of cyst History of laparoscopic cholecystectomy Family History Father Prostate cancer Mother CVD (cardiovascular disease) Maternal Uncle Colon cancer Paternal Uncle Colon cancer Social History Housing: House Alcohol intake: current Alcohol intake frequency: a few times a month Alcohol type: beer Patient Tobacco Use Status: Never used Tobacco e-Cigarette/Vaping Use: Never Used Second Hand Smoke Exposure: No service: No Current occupational status: unemployed Current occupational exposures/hazards: No Cognitive needs: No Hearing needs: No Vision needs: Yes Review of Systems Const All systems reviewed & are unremarkable except as noted in HPI and below Reports no additional complaints Eyes Reports no additional complaints ENT Reports no additional complaints Card Reports no additional complaints Resp Reports no additional complaints GI Reports no additional complaints Reports as per HPI Musc Reports no additional complaints Neuro Reports no additional complaints Psych Reports no additional complaints Endo Reports no additional complaints Luís/Lymph Reports no additional complaints Aller/Immun Reports no additional complaints Physical Exam Const General: cooperative, healthy appearing, comfortable, no acute distress, well developed, alert and awake Orientation/consciousness: patient oriented x3 Limitations: no limitations HEENT Head: Yes normal to inspection, Yes normocephalic and Yes atraumatic Ears: hearing grossly normal bilaterally Eyes General: appearance normal, both eyes and all related structures Neck Neck: Yes normal visual inspection and Yes trachea midline Chest Chest palpation & inspection: normal inspection of the chest Resp Effort & Inspection: normal respiratory effort Cardio Rate: regular rate General: Yes no CVA tenderness Back/Spine/Pelvis Back: no CVA tenderness Neuro General: patient oriented x3 Extrem General: Yes normal to inspection Psych Appearance: grossly normal and well kempt Mental Status: mental status grossly normal Speech and movement: Normal speech and movement present and Clear speech present Affect: normal affect Attitude: cooperative Thought process: Normal thought process present Thought content: Normal thought content present Insight: Good insight present (Psych) Judgement: Good judgement present (Psych) Assessment & Plan Assessment & Plan (1) Elevated PSA: Code(s): R97.20 - Elevated prostate specific antigen [PSA] Plan In office urinalysis results reviewed with the patient today; as noted above. Recent PSA results reviewed with the patient today; as noted above. Discussed, educated, and stressed the importance of prostate biopsy verses redraw of PSA verses surveillance monitoring Discussed risks and benefits of these interventions at length Will redraw PSA with no sex the night before no caffeine morning of, and no heavy lifting 1-2 days prior. IRMA offered however deferred. Discussed at length potential causes for elevated PSA as well as possible near future prostate biopsy given elevated PSA despite compliance with finasteride 5 mg daily as well as family history. He otherwise denies any bothersome urinary issues or concerns at this time. He is happy with current voiding parameters. Follow-up in 2-4 weeks with lab to be completed prior; or sooner with any issues, concerns, and or questions Orders: Orders PSA,Total (Free>4and<10) 06/11/23 R97.20 - Elevated prostate specific antigen [PSA] Patient Instructions: The patient had an opportunity to ask questions regarding the treatment plan. All questions were answered. Physical exam, labs, and imaging were discussed and reviewed in detail. As well as risks, benefits, and discussion of treatment choices. No major barriers to understanding were identified. The patient expressed understanding and agreement with the above treatment plan. The patient was made aware they should contact our office by phone for worsening of their current condition, the appearance of new symptoms, or with any questi ons or concerns. Compliance is encouraged with any medications and follow up testing that is ordered. It is a privilege to be allowed the opportunity to participate in? your urological care.? Again, if you have any questions or concerns If you have any questions or concerns please do not hesitate to contact me. The office is [phone]. This note is constructed using voice recognition software. While every effort has been made to ensure accuracy test pilot errors may have been included. Yours sincerely, Desiree Brooks, GROUNDMAN/LINEMAN-[employer] Coding Level of Care Code Est Pt Level 3 (08203) Diagnoses Elevated PSA R97.20
== END 2023-06-11 09:08 | disposition home or self-care (01) ==
PROVIDERS: PCP Internal Medicine; Visit Provider Nurse Practitioner Family
DX: R97.20 Elevated prostate specific antigen [PSA] (principal)
CPT/HCPCS: 99213

== ENCOUNTER → 2023-06-11 08:24 | Outpatient (BNVA) | payer OTHER, SELFPAY | PROVIDERS: PCP Internal Medicine; Visit Provider Nurse Practitioner Family | DX: R97.20 Elevated prostate specific antigen [PSA] (principal) | CPT/HCPCS: 99212 ==

== ENCOUNTER 2023-06-23 06:46 | Outpatient (REF) | payer OTHER, SELFPAY ==
[2023-06-23 08:23] LABS: PSA,Total (Free>4and<10) 3.12 ng/mL (0.00-4.00)
== END 2023-06-23 06:47 | disposition home or self-care (01) ==
LOC: HO.LAB 06:46
PROVIDERS: PCP Internal Medicine; Visit Provider Nurse Practitioner Family
DX: R97.20 Elevated prostate specific antigen [PSA] (principal)
CPT/HCPCS: 36415; 84153

== ENCOUNTER 2023-06-25 10:51 | Outpatient (AMB) | payer OTHER, SELFPAY ==
--- NOTE | 2023-06-25 10:52 | MHC.OFFVIS ---
Intake Intake Visit Reasons: 2w/PSA Intake Note: Patient presents today for a follow-up for PSA Results: Meds- Finasteride Allergies to Antibiotic- No Known Allergies Blood Thinner- None PSA Results: 3.12 ng/mL 06/23/2023 Secondary Special Education Teacher Required: Yes Secondary Special Education Teacher Language: Media Specialist Name: JAIRO ROSE-CMI Accompanied by: Self / Same As Patient Allergies No Known Allergies [No Known Allergies*] Allergy (Verified 06/27/23 14:12) Medication List - Last Reconciled 06/27/23 by LEONARD Ball finasteride 5 mg PO DAILY 90 days ibuprofen 600 mg PO TID PRN 30 days levofloxacin 500 mg PO daily 3 days HPI HPI Comments History of Present Illness Details Tristin is a pleasant 58 year old French speaking male patient of Dr. Ross. He has a past medical history of erectile dysfunction, hyperlipidemia, and elevated PSA. He is being follow-up on today via telehealth for his elevated PSA. Of note, patient was seen approximately 2 weeks ago at which time recommendations were made for redraw PSA due to increase in PSA from 2.6 to 4.2 in 6 months despite compliance with finasteride 5 mg daily. Recent PSA results reviewed with the patient today; as noted and trended below. When asked he reports to be doing and feeling well. Discussed at length surveillance monitoring verses prostate biopsy given elevated PSA despite finasteride in the setting of family history of prostate cancer. Previous workup has included a bladder ultrasound noting an enlarged prostate with a volume of 102 mL. When asked he denies any bothersome urinary issues or concerns at this time. He denies urinary urgency, urinary frequency, incontinence, nocturia, hematuria, dysuria, foul smelling urine, changes to urinary stream, flank pain, fever, and or chills. He is happy with his current voiding parameters. He otherwise offers no issues or concerns at this time. IRMA has been offered on multiple office visits however deferred. Patient does have a family history of prostate cancer with a history of elevated PSA however ultrasound noting enlarged prostate volume. This was discussed with the patient discussed surveillance monitoring of PSA in 4 months however patient at this time would like to undergo prostate biopsy given fluctuation in PSA despite 5 mg of finasteride daily. [facility] Medical History History of COVID-19 Erectile dysfunction Dyslipidemia Surgical History H/O umbilical hernia repair History of colonoscopy History of removal of cyst History of laparoscopic cholecystectomy Family History Father Prostate cancer Mother CVD (cardiovascular disease) Maternal Uncle Colon cancer Paternal Uncle Colon cancer Social History Housing: House Alcohol intake: current Alcohol intake frequency: a few times a month Alcohol type: beer Patient Tobacco Use Status: Never used Tobacco e-Cigarette/Vaping Use: Never Used Second Hand Smoke Exposure: No service: No Current occupational status: unemployed Current occupational exposures/hazards: No Cognitive needs: No Hearing needs: No Vision needs: Yes Review of Systems Const All systems reviewed & are unremarkable except as noted in HPI and below Reports no additional complaints Eyes Reports no additional complaints ENT Reports no additional complaints Card Reports no additional complaints Resp Reports no additional complaints GI Reports no additional complaints Reports as per HPI Musc Reports no additional complaints Neuro Reports no additional complaints Psych Reports no additional complaints Endo Reports no additional complaints Luís/Lymph Reports no additional complaints Aller/Immun Reports no additional complaints Physical Exam Const General: cooperative Resp Effort & Inspection: able to speak in complete sentences Psych Attitude: cooperative Thought process: Normal thought process present Thought content: Normal thought content present Insight: Fair insight present (Psych) Judgement: Fair judgement present (Psych) Assessment & Plan Assessment & Plan (1) Elevated PSA: Code(s): R97.20 - Elevated prostate specific antigen [PSA] (2) Enlarged prostate: Code(s): N40.0 - Benign prostatic hyperplasia without lower urinary tract symptoms Plan Recent PSA results reviewed with the patient today Discussed surveillance monitoring of PSA in 4 months versus prostate biopsy; this was discussed at length Patient with an extensive family history of prostate cancer with his father as well as maternal uncle. Discussed at length potential causes for elevated PSA Will schedule for prostate biopsy as discussed. Patient denies any bothersome urinary issues or concerns. Discussed antibiotic therapy day before, day of, and day after procedure; prescription provided Follow-up status post prostate biopsy per Dr. Byrnes's order; or sooner with any issues, concerns, and or questions Orders: Orders PSA,Total (Free>4and<10) 06/25/23 R97.20 - Elevated prostate specific antigen [PSA] Medications: New levofloxacin take 1 tablet day before procedure, 1 tablet day of procedure and 1 tablet day after procedure 500 mg PO daily 3 days 3 tabs 0RF Patient Instructions: The patient had an opportunity to ask questions regarding the treatment plan. All questions were answered. Physical exam, labs, and imaging were discussed and reviewed in detail. As well as risks, benefits, and discussion of treatment choices. No major barriers to understanding were identified. The patient expressed understanding and agreement with the above treatment plan. The patient was made aware they should contact our office by phone for worsening of their current condition, the appearance of new symptoms, or with any questions or concerns. Compliance is encouraged with any medications and follow up testing that is ordered. It is a privilege to be allowed the opportunity to participate in? your urological care.? Again, if you have any questions or concerns If you have any questions or concerns please do not hesitate to contact me. The office is [phone]. This note is constructed using voice recognition software. While every effort has been made to ensure accuracy calciner operator errors may have been included. Yours sincerely, [facility] Tele[facility] Telehealth Location of provider rendering services: practice address Location of patient: address on file Patient Identification confirmed using: Name, : Yes Telehealth method: voice only Patient verbally consented to treatment: Yes Patient verbally consented to billing insurance company: Yes Patient informed of any privacy concerns related to visit: Yes Minutes spent on Phone/Video with Pt.: 35 Coding Level of Care Code Tele Est Pt Level 4 (17185) Diagnoses Elevated PSA R97.20 Enlarged prostate N40.0 Time Spent (min) 35
== END 2023-06-25 11:35 | disposition home or self-care (01) ==
LOC: HO.HUSH 10:52
PROVIDERS: PCP Internal Medicine; Visit Provider Nurse Practitioner Family
DX: R97.20 Elevated prostate specific antigen [PSA] (principal); N40.0 Benign prostatic hyperplasia without lower urinary tract symptoms
CPT/HCPCS: 99214

== ENCOUNTER → 2023-06-25 10:51 | Outpatient (BNVA) | payer OTHER, SELFPAY | PROVIDERS: PCP Internal Medicine; Visit Provider Nurse Practitioner Family ==

== ENCOUNTER 2023-07-15 07:39 | Outpatient (REF) | payer OTHER, SELFPAY ==
[2023-07-15 08:04] VITALS: BP 145/84; PULSE 72; RESP 16; TEMP 36.3; O2SAT 96
[2023-07-15 08:06] VITALS: BMI 30.9
--- NOTE | 2023-07-15 08:19 | W.PM.OPN ---
Operative Note Operative Note Date of Service: 07/15/23 Narrative: Preoperative diagnosis: Elevated PSA Postoperative diagnosis: Elevated PSA Procedure: 1. transrectal ultrasound measurement of prostate 2. transrectal ultrasound-guided pudendal nerve block 3. transrectal ultrasound-guided prostate biopsy 12 core Surgeon: Dr. Harmeet Byrnes Anesthetic: Local Indications for procedure: Elevated PSA 4.1 12% Procedure: After informed consent was verified, the patient was brought into the procedure area and lay left-hand side down on the table. Patient identity confirmed. Perioperative antibiotics confirmed. Safety pause time out performed. IRMA performed to dilate rectal sphincter Iodine 10cc with Gel was placed per rectum Ultrasound probe was placed per rectum The prostate was measured in 3 dimensions Total volume equals 60 gm No cystic structures were noted No calcifications were noted at the surgical margin The prostate was otherwise heterogenous in nature An ultrasound-guided pudendal nerve block was performed using 10 cc of 1% lidocaine. 8 cc was placed at the base and 2 cc of the apex. A 12 core biopsy was performed with 6 cores each side. Two cores were taken at the apex, mid and base. Cores were spaced between lateral and medial. He tolerated the procedure well. Was able to ambulate to bathroom after 5 minutes. Printed instructions regarding antibiotic use and common side effects such as low-grade temperature, potential infection and bleeding were given Pathology: 12 core prostate biopsy.
[2023-07-15 08:35] VITALS: BP 162/71; PULSE 71; RESP 18; O2SAT 98
== END 2023-07-15 07:40 | disposition home or self-care (01) ==
LOC: HO.MS 07:39
PROVIDERS: PCP Internal Medicine; Visit Provider Urology
PROC: (CPT 55700; principal; 2023-07-15 08:00)
DX: C61 Malignant neoplasm of prostate (principal); R97.20 Elevated prostate specific antigen [PSA]
CPT/HCPCS: 55700; 76942; 88305; 88344

== ENCOUNTER → 2023-07-15 07:39 | Outpatient (BNV) | payer OTHER, SELFPAY | PROVIDERS: PCP Internal Medicine; Visit Provider Urology | DX: R97.20 Elevated prostate specific antigen [PSA] (principal) | CPT/HCPCS: 55700; 76942 ==

== ENCOUNTER 2023-08-13 08:27 | Outpatient (AMB) | payer OTHER, SELFPAY ==
--- NOTE | 2023-08-13 08:28 | A.OFFVIS_ITS ---
Intake Intake Visit Reasons: PostOP:Prostate bx results Intake Note: Patient presents today for a follow-up biopsy results Meds- Finasteride Allergies to Antibiotic- No Known Allergies Blood Thinner- None Patient Symptoms: Patient stated he does not feel so well after procedure. He was prescribed levofloxacin, and the pharmacy did not give it to him. Fruit Stuffer Required: Yes Allergies No Known Allergies [No Known Allergies*] Allergy (Verified 08/13/23 08:33) Medication List - Last Reconciled 08/13/23 by Harmeet Byrnes MD finasteride 5 mg PO DAILY 90 days ibuprofen 600 mg PO TID PRN 30 days levofloxacin 500 mg PO daily 3 days HPI HPI Comments History of Present Illness Details Tristin is a pleasant Kyrgyz-speaking male. He is a patient of Dr. Melissa. He is seen for the following urologic conditions - erectile dysfunction - elevated PSA Telemedicine Evaluation 15 min Consultation [employer] [place] Video attempted Recent prostate biopsy Low volume, low risk grade 1 prostate cancer Will complete evaluation with prostate MRI NCCN INITIAL RISK STRATIFICATION AND STAGING WORKUP FOR CLINICALLY LOCALIZED DISEASE Evaluation depends on assignment to both risk group and grade group. This determines recommended evaluation. PRINCIPLES OF ACTIVE SURVEILLANCE AND OBSERVATION - NCCN Prostate Cancer Guide line 4.2022 PROS-F Page 2 Confirmatory Testing to Establish Appropriateness of Active Surveillance: - Goals of confirmatory testing are to h elp facilitate early identification of those patients who may be at a higher risk of future grade reclassification or cancer progression. - Since an initial prostate biopsy may u nderestimate tumor grade or volume, confirmatory testing is strongly recommended within the first 6 to 12 months of diagnosis for patients who are considering active surveillance. - Options for confirmatory testing inclu de prostate biopsy, mpMRI with calculation of PSA density (and repeat biopsy as indicated), and/or molecular tumor analysis, see Principles of Risk Stratification (PROS-D). - Early confirmatory testing may not be necessary in patients who have had an mpMRI prior to diagnostic biopsy. All patients should undergo a confirmatory prostate biopsy within 1?2 years of their diagnostic biopsy PRINCIPLES OF RISK STRATIFICATION PROS-D NCCN Prostate Cancer Guideline 4.2022 - Page 2 There are advanced risk stratification tools (ie, gene expression biomarkers, AI digital pathology) that independently improve risk stratification. See Table 1: Initial Risk Stratification for Clinically Localized Disease. These tools are recommended to be used when they will have the potential ability to loom changer. These tools should not be ordered reflexively. There are an extensive number of these tools created with substantial variability in quality of reporting and model design, endpoint selection, and quality and caliber of validation. It is recommended to use models that have high-quality and robust validation, ideally with randomized clinical trial data across multiple clinical trials. These tools are not recommended for patients with [id number] prostate cancer. Patients with NCCN low, favorable intermediate, unfavorable intermediate, or high-risk disease and life expectancy >10 y may consider the use of the following tumor-based molecular assays: Decipher, Oncotype DX Prostate, and Prolaris In accordance with NCCN guidelines multiparametric MRI will be ordered and due to diagnosis of very low risk - these tests will determine treatment a ctive surveillance versus cryotherapy versus brachytherapy. Evaluation is in accordance with NCCN guidelines and are recommended due to the potential ability to loom changer Prostate Cancer - low volume, low risk, Grade Group 1 - 07/2023 Elevated PSA 06/12 4.1 on finasteride Prostate Volume 100gm Histologic type: Adenocarcinoma, acinar type [place] score: 3+3=6 (right apex lateral) 10% single core Elevated PSA 06/12 4.1 F 12% calculated PCP T risk gr eater than 5% high-grade PSA while stone finasteride Prostate ultrasound 100 cc volume Family history of prostate cancer Erectile dysfunction Response to oral on demand medications PFSH Medical History History of COVID-19 Erectile dysfunction Dyslipidemia Surgical History H/O umbilical hernia repair History of colonoscopy History of removal of cyst History of laparoscopic cholecystectomy Family History Father Prostate cancer Mother CVD (cardiovascular disease) Maternal Uncle Colon cancer Paternal Uncle Colon cancer Social History (Reviewed 08/13/23 @ 08:33 by AMANDA Francis Housing: House Alcohol intake: current Alcohol intake frequency: a few times a month Alcohol type: beer Patient Tobacco Use Status: Never used Tobacco e-Cigarette/Vaping Use: Never Used Second Hand Smoke Exposure: No service: No Current occupational status: unemployed Current occupational exposures/hazards: No Cognitive needs: No Hearing needs: No Vision needs: Yes Review of Systems Const All systems reviewed & are unremarkable except as noted in HPI and below Reports no additional complaints Resp Reports no additional complaints GI Reports no additional complaints Reports as per HPI Musc Reports no additional complaints Physical Exam Telemedicine evaluation Appropriate responses Regular breathing rate and rhythm HEENT Head: Yes normal to inspection Ears: hearing grossly normal bilaterally Eyes General: appearance normal, both eyes and all related structures Neck Neck: Yes normal visual inspection Chest Chest palpation & inspection: normal inspection of the chest Resp Effort & Inspection: normal respiratory effort and able to speak in complete sentences Assessment & Plan Assessment & Plan (1) Prostate cancer: Code(s): C61 - Malignant neoplasm of prostate Plan Prostate MRI 2 month f/u Orders: Orders Creatinine Today C61 - Malignant neoplasm of prostate, R39.15 - Urgency of urination MR pelvis wo/w con 1 Month C61 - Malignant neoplasm of prostate Blood Urea Nitrogen Today C61 - Malignant neoplasm of prostate, R39.15 - Urgency of urination Patient Instructions: Imaging studies, laboratory and physical exam results were discussed and reviewed in detail. No major barriers to patient understanding were identified. An opportunity to ask questions regarding the treatment plan was provided. All questions were answered. The patient expressed understanding and agreement with the above treatment plan. The patient is aware they should contact our office by phone for worsening of their current condition or the appearance of new urologic symptoms. Compliance is encouraged with any medications and followup testing that is ordered. It is a privilege to participate in the urologic care of your patient. If you have any questions or concerns regarding treatment for the above conditions, or other urologic issues, please do not hesitate to contact me. The office telephone contact is [phone]. This note is constructed using voice recognition software. While every effort has been made to ensure accuracy horse rancher errors may have been included. Yours sincerely, Dr Harmeet Byrnes MD, [facility] - Urology Providers of Expert, Compassionate Care for the Genitourinary System Telehealth Telehealth Location of provider rendering services: practice address Location of patient: address on file Patient Identification confirmed using: Name, : Yes Telehealth method: video Patient verbally consented to treatment: Yes Patient verbally consented to billing insurance company: Yes Patient informed of any privacy concerns related to visit: Yes Minutes spent on Phone/Video with Pt.: 35 Coding Level of Care Code Tele Est Pt Level 4 (59227) Diagnoses Prostate cancer C61
== END 2023-08-13 09:27 | disposition home or self-care (01) ==
LOC: HO.HUSH 08:28
PROVIDERS: PCP Internal Medicine; Visit Provider Urology
DX: C61 Malignant neoplasm of prostate (principal)
CPT/HCPCS: 99214

== ENCOUNTER → 2023-08-13 08:27 | Outpatient (BNVA) | payer OTHER, SELFPAY | PROVIDERS: PCP Internal Medicine; Visit Provider Urology ==

== ENCOUNTER 2023-10-27 14:55 | Outpatient (AMB) | payer OTHER, SELFPAY ==
--- NOTE | 2023-10-27 15:41 | A.OFFVIS_ITS ---
Intake Visit Reasons: MRI Results(set) Allergies No Known Allergies [No Known Allergies*] Allergy (Verified 08/13/23 08:33) Medication List - Last Reconciled 10/27/23 by Harmeet Byrnes MD finasteride 5 mg PO DAILY 90 days ibuprofen 600 mg PO TID PRN 30 days levofloxacin 500 mg PO daily 3 days HPI Comments Details: Tristin is a pleasant Mongolian-speaking male. He is a patient of Dr. Melissa. He is seen for the following urologic conditions - erectile dysfunction - elevated PSA Telemedicine Evaluation 15 min Consultation [employer] [place] Video attempted MRI low volume disease Good candidate for active surveillance 4 month follow-up PSA Prostate Cancer - low volume, low risk, Grade Group 1 - 07/2023 MRI 10/12 42gm prostate, PIRADS 4 Left TZ 8mm Elevated PSA 06/12 4.1 on finasteride Prostate Volume 100gm Histologic type: Adenocarcinoma, acinar type [place] score: 3+3=6 (right apex lateral) 10% single core Elevated PSA 06/12 4.1 F 12% calculated PCP T risk greater than 5% high-grade PSA whilst on finasteride Prostate ultrasound 100 cc volume Family history of prostate cancer Erectile dysfunction Response to oral on demand medications PFSH Medical History History of COVID-19 Erectile dysfunction Dyslipidemia Surgical History H/O umbilical hernia repair History of colonoscopy History of removal of cyst History of laparoscopic cholecystectomy Family History Father Prostate cancer Mother CVD (cardiovascular disease) Maternal Uncle Colon cancer Paternal Uncle Colon cancer Social History Housing: House Alcohol intake: current Alcohol intake frequency: a few times a month Alcohol type: beer Patient Tobacco Use Status: Never used Tobacco e-Cigarette/Vaping Use: Never Used Second Hand Smoke Exposure: No service: No Current occupational status: unemployed Current occupational exposures/hazards: No Cognitive needs: No Hearing needs: No Vision needs: Yes Review of Systems Const Denies chills and Denies fever(s) Card Reports no additional complaints and Denies syncope Resp Denies cough GI Denies abdominal pain and Denies heartburn Reports as per HPI and Denies change in libido Neuro Denies syncope Psych Denies change in libido Endo Denies change in libido Physical Exam Const General: cooperative, healthy appearing, comfortable and no acute distress Orientation/consciousness: patient oriented x3 HEENT Face and sinus: Yes normal facial exam Mouth: moist mucous membranes Neck Neck: Yes normal visual inspection, Yes full ROM and Yes trachea midline Chest Chest palpation & inspection: normal inspection of the chest Resp Effort & Inspection: normal respiratory effort, able to speak in complete sentences and no respiratory distress GI Inspection: Yes normal to inspection Back/Spine/Pelvis Cervical Spine: normal cervical lordosis Thoracic/Lumbar Spine: thoracic and lumbar spine normal to inspection Skin General skin exam: no rashes or lesions noted Neuro General: patient oriented x3, gait normal, tone normal and moves all extremities Extrem General: Yes normal to inspection and Yes capillary refill normal Telehealth Telehealth Location of provider rendering services: practice address Location of patient: address on file Patient Identification confirmed using: Name, : Yes Telehealth method: voice only Patient verbally consented to treatment: Yes Patient verbally consented to billing insurance company: Yes Patient informed of any privacy concerns related to visit: Yes Assessment & Plan Assessment & Plan (1) Prostate cancer: Code(s): C61 - Malignant neoplasm of prostate Category: Medical Plan Four month follow-up PSA Orders: Orders Prostate Specific Antigen 4 Months C61 - Malignant neoplasm of prostate Medications: Refilled finasteride 5 mg PO DAILY 90 days 90 tabs 3RF N32.0 - Bladder-neck obstruction Patient Instructions: Imaging studies, laboratory and physical exam results were discussed and reviewed in detail. No major barriers to patient understanding were identified. An opportunity to ask questions regarding the treatment plan was provided. All questions were answered. The patient expressed understanding and agreement with the above treatment plan. The patient is aware they should contact our office by phone for worsening of their current condition or the appearance of new urologic symptoms. Compliance is encouraged with any medications and followup testing that is ordered. It is a privilege to participate in the urologic care of your patient. If you have any questions or concerns regarding treatment for the above conditions, or other urologic issues, please do not hesitate to contact me. The office telephone contact is [phone]. This note is constructed using voice recognition software. While every effort has been made to ensure accuracy nurse midwife/clinical instructor errors may have been included. Yours sincerely, Dr Harmeet Byrnes MD, [facility] - Urology Providers of Expert, Compassionate Care for the Genitourinary System Coding Level of Care Code Tele Est Pt Level 3 (12165) Diagnoses Prostate cancer C61
== END 2023-10-27 16:03 | disposition home or self-care (01) ==
LOC: HO.HUSH 14:55
PROVIDERS: PCP Internal Medicine; Visit Provider Urology
DX: C61 Malignant neoplasm of prostate (principal)
CPT/HCPCS: 99213

== ENCOUNTER → 2023-10-27 14:55 | Outpatient (BNVA) | payer OTHER, SELFPAY | PROVIDERS: PCP Internal Medicine; Visit Provider Urology ==

== ENCOUNTER 2024-02-28 13:01 | Outpatient (REF) | payer OTHER, SELFPAY ==
[2024-02-28 14:25] LABS: Blood Urea Nitrogen 16 mg/dL (9-16); Estimated Glomerular Filt Rate > 60
[2024-02-28 14:54] LABS: Prostate Specific Antigen 2.14 ng/mL (<0.05-4.0)
== END 2024-02-28 13:02 | disposition home or self-care (01) ==
LOC: HO.LAB 13:01
PROVIDERS: PCP Internal Medicine; Visit Provider Urology
DX: R39.15 Urgency of urination (principal); C61 Malignant neoplasm of prostate
CPT/HCPCS: 36415; 82565; 84153; 84520

== ENCOUNTER 2024-02-29 08:28 | Outpatient (AMB) | payer OTHER, SELFPAY ==
--- NOTE | 2024-02-29 08:30 | MHC.OFFVIS ---
Intake Visit Reasons: 4M Follow Up- PSA(set) Intake Note: Patient is Present for Follow Up PSA Urology Medication:Finasteride Antibiotic Allergies:None Blood Thinners: None PSA- 02/28/24- 2.14 Last PSA- 3.12 Logistics Project Manager Required: Yes Logistics Project Manager Language: Steel Burner Services: Logistics Project Manager Present Geography Instructor: Geography Instructor Present Accompanied by: Self / Same As Patient Allergies No Known Allergies [No Known Allergies*] Allergy (Verified 02/29/24 08:31) HPI Comments Details: Tristin is a pleasant Arabic-speaking male. He is a patient of Dr. Melissa. He is seen for the following urologic conditions - erectile dysfunction - elevated PSA Arabic translation provided by qualified regional medical director Continue good response PSA - 03/14 2.1 - move to alternate finasteride Six-month follow-up PSA Discussed repeat biopsy at 2 years Prostate Cancer - low volume, low risk, Grade Group 1 - 07/2023 MRI 10/12 42gm prostate, PIRADS 4 Left TZ 8mm - low volume Elevated PSA 06/12 4.1 on finasteride Prostate Volume 100gm Histologic type: Adenocarcinoma, acinar type [place] score: 3+3=6 (right apex lateral) 10% single core Elevated PSA 06/12 4.1 F 12% calculated PCP T risk greater than 5% high-grade PSA whilst on finasteride Prostate ultrasound 100 cc volume Family history of prostate cancer Erectile dysfunction Response to oral on demand medications PFSH Medical History History of COVID-19 Erectile dysfunction Dyslipidemia Surgical History H/O umbilical hernia repair History of colonoscopy History of removal of cyst History of laparoscopic cholecystectomy Family History Father Prostate cancer Mother CVD (cardiovascular disease) Maternal Uncle Colon cancer Paternal Uncle Colon cancer Social History Housing: House Alcohol intake: current Alcohol intake frequency: a few times a month Alcohol type: beer Patient Tobacco Use Status: Never used Tobacco e-Cigarette/Vaping Use: Never Used Second Hand Smoke Exposure: No service: No Current occupational status: unemployed Current occupational exposures/hazards: No Cognitive needs: No Hearing needs: No Vision needs: Yes Review of Systems Const Denies chills and Denies fever(s) Card Reports no additional complaints and Denies syncope Resp Denies cough GI Denies abdominal pain and Denies heartburn Reports as per HPI and Denies change in libido Neuro Denies syncope Psych Denies change in libido Endo Denies change in libido Physical Exam Const General: cooperative, healthy appearing, comfortable and no acute distress Orientation/consciousness: patient oriented x3 HEENT Face and sinus: Yes normal facial exam Mouth: moist mucous membranes Neck Neck: Yes normal visual inspection, Yes full ROM and Yes trachea midline Chest Chest palpation & inspection: normal inspection of the chest Resp Effort & Inspection: normal respiratory effort, able to speak in complete sentences and no respiratory distress GI Inspection: Yes normal to inspection Back/Spine/Pelvis Cervical Spine: normal cervical lordosis Thoracic/Lumbar Spine: thoracic and lumbar spine normal to inspection Skin General skin exam: no rashes or lesions noted Neuro General: patient oriented x3, gait normal, tone normal and moves all extremities Extrem General: Yes normal to inspection and Yes capillary refill normal Assessment & Plan Assessment & Plan (1) Prostate cancer: Code(s): C61 - Malignant neoplasm of prostate Category: Medical Plan PSA six-month Orders: Orders Prostate Specific Antigen 6 Months C61 - Malignant neoplasm of prostate Patient Instructions: Imaging studies, laboratory and physical exam results were discussed and reviewed in detail. No major barriers to patient understanding were identified. An opportunity to ask questions regarding the treatment plan was provided. All questions were answered. The patient expressed understanding and agreement with the above treatment plan. The patient is aware they should contact our office by phone for worsening of their current condition or the appearance of new urologic symptoms. Compliance is encouraged with any medications and followup testing that is ordered. It is a privilege to participate in the urologic care of your patient. If you have any questions or concerns regarding treatment for the above conditions, or other urologic issues, please do not hesitate to contact me. The office telephone contact is [phone]. This note is constructed using voice recognition software. While every effort has been made to ensure accuracy night assistant errors may have been included. Yours sincerely, Dr Harmeet Byrnes MD, [facility] - Urology Providers of Expert, Compassionate Care for the Genitourinary System Coding Level of Care Code Est Pt Level 4 (78437) Diagnoses Prostate cancer C61
== END 2024-02-29 09:36 | disposition home or self-care (01) ==
PROVIDERS: PCP Internal Medicine; Visit Provider Urology
DX: C61 Malignant neoplasm of prostate (principal)
CPT/HCPCS: 99214

== ENCOUNTER → 2024-02-29 08:28 | Outpatient (BNVA) | payer OTHER, SELFPAY | PROVIDERS: PCP Internal Medicine; Visit Provider Urology | DX: C61 Malignant neoplasm of prostate (principal); N52.9 Male erectile dysfunction, unspecified | CPT/HCPCS: 99212 ==

== ENCOUNTER 2024-06-27 06:15 | Outpatient (REF) | payer OTHER, SELFPAY ==
[2024-06-27 08:28] LABS: Alanine Aminotransferase 31 U/L (0-40); Alkaline Phosphatase 54 U/L (39-117); Anion Gap 11 (12-20); Aspartate Amino Transferase 22 U/L (5-37); Bilirubin Total 0.8 mg/dL (0.0-1.0); Blood Urea Nitrogen 15 mg/dL (9-16); Carbon Dioxide 26 mmol/L (22-29); Chloride 110 mmol/L (96-108); Cholesterol 200 mg/dL (<200); Estimated Glomerular Filt Rate > 60; Glucose Fasting 100 mg/dL (60-99); HDL Cholesterol 37 mg/dL (>40); LDL Cholesterol Calculated 140 mg/dL (<100); Potassium 4.5 mmol/L (3.3-5.1); Sodium 142 mmol/L (135-145); Triglycerides 118 mg/dL (<150)
[2024-06-27 08:47] LABS: PSA,Total (Free>4and<10) 4.88 ng/mL (0.00-4.00)
[2024-06-28 11:57] LABS: Free Prostate Spec Ag 0.8 ng/mL; Percent Free Prostate Spec Ag 16 % (calc) (>25); Prostate Specific Ag Total 4.9 ng/mL (< OR = 4.0)
== END 2024-06-27 06:16 | disposition home or self-care (01) ==
LOC: HO.LAB 06:15
PROVIDERS: PCP Internal Medicine; Visit Provider Internal Medicine
DX: Z00.00 Encounter for general adult medical examination without abnormal findings (principal); R35.1 Nocturia; R97.20 Elevated prostate specific antigen [PSA]; E78.5 Hyperlipidemia, unspecified
CPT/HCPCS: 36415; 80053; 80061; 84153; 84154

== ENCOUNTER 2024-06-28 12:01 | Outpatient (AMB) | payer OTHER, SELFPAY ==
--- NOTE | 2024-06-28 12:18 | MHC.PC.OV ---
Vital Signs 06/28/24 12:20 Height 5 ft 4 in Weight 185 lb BMI 31.8 BP 130/82 Blood Pressure Location Lt brachial Position Sitting Intake Visit Reasons: PE- NEEDS PHQ-9 Intake Note: Patient here for a physical exam College Specialist Required: No Accompanied by: Self / Same As Patient Allergies No Known Allergies [No Known Allergies*] Allergy (Verified 06/28/24 12:39) Medication List - Last Reconciled 06/28/24 by Karen Mcintosh MD No Known Home Meds Tobacco use date assessed: 06/28/24 Dental Screening Dental Screen Date: 06/28/24 Did you have a dental visit in the last 12 months?: Yes Did you have a dental problem in the last 6 months where you did not have access to dental care?: No Was dental information given to patient?: Patient has dentist HPI HPI Comments History of Present Illness Details This is a 59-year-old male that comes for his physical exam. Had colonoscopy 2016 which was normal and next colonoscopy should be 2026. Tdap done 2015 and next 1 should be 2025. He had prostate cancer with biopsy done last year showing [place] of 6 with 5% of the tissue involved in the right apex lateral and this is follow by Urology. Has a follow-up appointment with Urology in August. He also has pure hypercholesterolemia and his [place] risk score is 10.4% and this is why I will start him on statins. He admits a high fat diet. He is obese with a BMI of 31.8 and was advised to do diet and exercise to reach BMI goal less than 30. He is a New Zealander-speaking patient and I did translate. [facility] Medical History (Updated 06/28/24 @ 12:53 by Karen Mcintosh MD) History of COVID-19 Erectile dysfunction Dyslipidemia Surgical History H/O umbilical hernia repair History of colonoscopy History of removal of cyst History of laparoscopic cholecystectomy Family History Father Prostate cancer Mother CVD (cardiovascular disease) Maternal Uncle Colon cancer Paternal Uncle Colon cancer Social History (Updated 06/28/24 @ 12:42 by Karen Mcintosh MD) Housing: House Alcohol intake: former Patient Tobacco Use Status: Never used Tobacco e-Cigarette/Vaping Use: Never Used Second Hand Smoke Exposure: No service: No Current occupational status: unemployed Current occupational exposures/hazards: No Cognitive needs: No Hearing needs: No Vision needs: Yes Questionnaire PHQ-9 Over the last 2 weeks, how often have you been bothered by any of the following problems? 1. Little interest or pleasure in doing things: not at all 2. Feeling down, depressed, or hopeless: not at all 3. Trouble falling or staying asleep, or sleeping too much: not at all 4. Feeling tired or having little energy: not at all 5. Poor appetite or overeating: not at all 6. Feeling bad about yourself - or that you are a failure or have let yourself or your family down: not at all 7. Trouble concentrating on things, such as reading the newspaper or watching television: not at all 8. Moving or speaking so slowly that other people could have noticed. Or the opposite - being so fidgety or restless that you have been moving around a lot more than usual: not at all 9. Thoughts that you would be better off or of hurting yourself in some way: not at all Total score: 0 Depression Screening Interpretation: Negative Depression Screening Done: Yes 17404 - PHQ-9 Billing: Yes Source: Developed by Drs. Jerald Sutton, Luna Anderson, Guillaume Álvarez and colleagues, with an educational shad from [employer]. Thrive Questionnaire Date Thrive assessed: 05/18/23 I am a: Patient What is your living situation today?: I have a steady place to live Within the past 12 months, did the food you bought not last and you didn't have the money to get more?: Often true Within the past 12 months, did you worry whether your food would run out before you got money to buy more?: Often true Do you have trouble paying for medicines?: No Do you have trouble getting transportation to medical appointments?: No Do you have trouble paying your heating and electricity bill?: No Do you have trouble taking care of your child, family member or friend?: I choose not to answer this question Do you have trouble with day-to-day activities such as bathing, preparing meals, shopping, managing finances, etc.?: No Are you currently unemployed and looking for a job?: No Are you interested in more education?: No Please select the resources that you would like help with: None Currently or been in a relationship where the following occur: I choose not to answer THRIVE Score: 2 AUDIT C Alcohol Use Questionnaire (AUDIT-C) 1. How often do you have a drink containing alcohol?: Never Total Score: 0 Score Reviewed/Action Taken: No NOLVIA-7 AMB Questionnaire NOLVIA-7 Date NOLVIA - 7 assessed: 06/28/24 Feeling nervous, anxious, or on edge: 0 = Not at all Not being able to stop or control worryin = Not at all Worrying too much about different things: 0 = Not at all Trouble relaxin = Not at all Being so restless that it is hard to sit still: 0 = Not at all Becoming easily annoyed or irritable: 0 = Not at all Feeling afraid as if something awful might happen: 0 = Not at all Total NOLVIA-7 score (0-4 normal; 5-9 mild; 10-14 moderate; 15-21 severe): 0 Source: Developed by Drs. Jerald Sutton, Luna Anderson, Guillaume Álvarez and colleagues, with an educational shad from [employer]. NOLVIA-7 Assessment Billing NOLVIA-7 Assessment Tool: NOLVIA-7 Assessment 51965 Review of Systems Const All systems reviewed & are unremarkable except as noted in HPI and below Card Denies chest pain at rest, Denies chest pain with activity, Denies edema, Denies irregular heart rhythm, Denies claudication, Denies dyspnea, Denies dyspnea on exertion, Denies orthopnea, Denies paroxysmal nocturnal dyspnea and Denies slow heart rate Resp Denies cough, Denies dyspnea and Denies dyspnea on exertion Physical exam (Primary Care) Vital Signs: Last Vital Signs BP 130/82 06/28/24 12:20 BMI result Body Mass Index 31.8 BMI Assessment/Plan discussion: High BMI High, discussed plan: lifestyle, weight reduction, dietary and physical activity Tobacco/Smoking Status: Tobacco use Status Tobacco use date assessed 06/28/24 06/28/24 12:23 Patient Tobacco Use Status Never used Tobacco 06/28/24 12:42 e-Cigarette/Vaping Use Never Used 06/28/24 12:42 PHQ-9: PHQ-9 Score PHQ-9: Total score 0 06/28/24 12:43 Depression Screening Interpretation: Negative Thrive Assessment: Date of Thrive Assessment Date Thrive assessed 05/18/23 06/28/24 12:19 Currently or been in a relationship where the following occur: I choose not to answer HENMT Head: Yes normal to inspection, Yes normocephalic and Yes atraumatic Ears: external ears normal Eyes General: appearance normal, both eyes and all related structures Eyelids: Yes eyelids normal Conjunctivae: conjunctivae normal Neck Neck: Yes normal visual inspection and Yes supple Resp Effort & Inspection: normal respiratory effort Auscultation: clear to auscultation bilaterally Cardio Jugular venous distension: no JVD Rate: regular rate Rhythm: regular rhythm Heart sounds: S1 normal heart sound present and S2 normal heart sound present GI Inspection: Yes normal to inspection Palpation (GI): Soft to palpation and nontender Auscultation: normal bowel sounds Skin General skin exam: no rashes or lesions noted Neuro General: no focal motor deficits Extrem General: Yes full ROM Psych Appearance: grossly normal Office Procedures Flu Questionnaire Does the patient have a severe egg allergy?: No Does the patient have severe life threatening allergies?: No Does the patient have a fever or illness today?: No Has the patient ever had Guillain-[place] Syndrome?: No Has the patient ever had any past reaction to a flu shot?: No Immunizations Fluarix Triv [id number] (PF) 45 mcg (15 mcg x 3)/0.5 mL IM syringe Performing Provider: Karen Mcintosh MD Per[facility] Administered by: WHIT Lau on 06/28/24 12:49 Dose Route Admin Location Dispensed Lot Number Expiration Date ND Executive Meeting Manager 0.5 mL IM Left Deltoid 0.5 mL [id number] 12/18/24 16463-774-30 [employer] VIS Given Date VIS Provided VIS Publication Date 06/28/24 Single Vaccine 21 Eligibility Eligibility Date Funding Source Not [facility] Eligible 06/28/24 Private Coding Level of Care Code Est Pt Prev Care 40-64y(67574) Diagnoses Encounter for physical examination Z00.00 Prostate cancer C61 Additional Codes PHQ-9 - 33092 - PHQ-9 Billing: Yes ([id number]) NOLVIA-7 Assessment Billing - NOLVIA-7 Assessment Tool: NOLVIA-7 Assessment 89632 ([id number]) Time Spent (min) 31 Assessment & Plan Assessment & Plan (1) Encounter for physical examination: Code(s): Z00.00 - Encounter for general adult medical examination without abnormal findings Category: Medical Plan: Repeat in a year. (2) Prostate cancer: Code(s): C61 - Malignant neoplasm of prostate Category: Medical Plan: Follow-up with Urology. Orders: Orders Influenza [id number] Immunization Today Z23 - Encounter for immunization Medications: New ibuprofen 800 mg PO Q8H 30 days PRN 90 tabs 0RF pain atorvastatin 10 mg PO BEDTIME 90 days 90 tabs 1RF E78.00 - Pure hypercholesterolemia, unspecified
[2024-06-28 12:20] VITALS: BP 130/82; BMI 31.8
== END 2024-06-28 12:57 | disposition home or self-care (01) ==
PROVIDERS: PCP Internal Medicine; Visit Provider Internal Medicine
DX: Z00.00 Encounter for general adult medical examination without abnormal findings (principal); C61 Malignant neoplasm of prostate; Z23 Encounter for immunization

== ENCOUNTER → 2024-06-28 12:01 | Outpatient (BNVA) | payer OTHER, SELFPAY | PROVIDERS: PCP Internal Medicine; Visit Provider Internal Medicine | DX: Z00.00 Encounter for general adult medical examination without abnormal findings (principal); E66.9 Obesity, unspecified; C61 Malignant neoplasm of prostate; E78.00 Pure hypercholesterolemia, unspecified; Z23 Encounter for immunization; Z68.31 Body mass index [BMI] 31.0-31.9, adult | CPT/HCPCS: 90471; 90656; 96127; 99396 ==

== ENCOUNTER 2024-08-24 06:25 | Outpatient (REF) | payer OTHER, SELFPAY ==
--- OUTSIDE RECORDS SUMMARY | 2024-08-24 06:27 | XMS_ITS | Clinical Summary ---
Author Organization [facility] Address [address] [place] [address] Care Team Providers Care Slide Developer Name Role Phone Unavailable Primary Care Provider Unavailabl e Source Comments PLEASE NOTE, if this patient is a minor, it may be UNLAWFUL to discuss sensitive information that is contained in these records (such as FAMILY PLANNING, MENTAL HEALTH or SUBSTANCE ABUSE) with the minor patient's parent or other person without the patient's specific authorization.[facility] Immunizations Name Administration Dates Next Due Moderna COVID-19 Vaccine, re d cap blue label, 12+ Primary Series 10/22/2020,09/23/2020 Social History Tobacco Use Types Packs/Day Years Used Date Smoking Tobacco: Never Assessed Social Connections Answer Date Recorded Social Connections and Isolation 0 09/23/2020 Financial Resource Strain Answer Date R ecorded Financial Resource Strain 0 2020 Stress Answer Date Recorded Stress 0 09/23/2020 Physical Activity Answer Date Recorded Physical Activity 0 09/23/2020 Food Insecurity Answer Date Recorded Food 0 09/23/2020 Transportation Needs Answer Date Record ed Transportation 0 09/23/2020 Housing Stability Answer Date Recorded Housing 0 09/23/2020 Safety and Environment Answer Date Uriel rded Safety 0 09/23/2020 Utilities Answer Date Recorded Utilities 0 09/23/2020 Employment Answer Date Recorded Employment 0 09/23/2020 Sex and Gender Information Value Date Recorded Sex Assigned at Not on file Legal Sex Male 1:19 PM PDT Gender Identity Not on file Sexual Orientation Not on file Plan of Treatment Health Maintenance Due Date Last Done Comments Diabetes Screening 1966 Hepatitis C Screening 1966 Lipid Screening 1966 Tobacco Screening 1966 HIV Screening 1981 Annual Preventive Care Visit 02/01/1984 Hypertension Screening (#1) 02/01/1984 Imm-DTaP/Tdap/Td (1 - Tdap) 1985 Imm-Hepatitis B (1 of 3 - 19 + 3-dose series) 1985 CT Colonography 2011 Colonoscopy 2011 Colorectal Cancer Screening 2011 FIT/gFOBT 2011 Fecal DNA 2011 Flexible Sigmoidoscopy 2011 Imm-Zoster, Recombinant (1 of 2) 02/01/2016 Alcohol and Drug Screen 06/21/2023 Depression Annual Screen 06/21/2023 [id number] ( season) 2024 021, 09/23/2020 Imm-Influenza (#1) 2024 03/03/2020, 1 06/25/2018, 07/25/2017, Additional history exists Insurance [facility] [employer] Member Subscriber Plan / Payer (Ef fective 2020-Present) Name:Shiv Tristin Relation to Subscriber:Self Name:Tristin Chaney Payer ID:[id number] Group ID:Not on file Type:Medicaid Address: [facility] [address] [place] [address]
[2024-08-24 08:18] LABS: Prostate Specific Antigen 5.86 ng/mL (<0.05-4.0)
== END 2024-08-24 06:26 | disposition home or self-care (01) ==
LOC: HO.LAB 06:25
PROVIDERS: PCP Internal Medicine; Visit Provider Urology
DX: C61 Malignant neoplasm of prostate (principal)
CPT/HCPCS: 36415; 84153

== ENCOUNTER 2024-09-08 09:23 | Outpatient (AMB) | payer OTHER, SELFPAY ==
--- NOTE | 2024-09-08 09:23 | A.OFFVIS_ITS ---
Intake Visit Reasons: 6m/PSA Intake Note: Patient is present for 6M/PSA Urology Medication:NONE Antibiotic Allergy:NONE Blood Thinner:NONE Manager Asset Management Required: No Allergies No Known Allergies [No Known Allergies*] Allergy (Verified 09/08/24 09:24) HPI Comments Details: Tristin is a pleasant Arabic-speaking male. He is a patient of Dr. Melissa. He is seen for the following urologic conditions - erectile dysfunction - elevated PSA Telemedicine Evaluation 15 min Consultation [employer] [place] Video Arabic translation provided by qualified medical insurance coding specialist Continue good response PSA - 03/14 2.1, Six-month follow-up PSA Discussed repeat biopsy at 2 years Prostate Cancer - low volume, low risk, Grade Group 1 - 07/2023 PSA 03/14 2.1 on finasterdie, 09/12 5.9 off finasteride MRI 10/12 42gm prostate, PIRADS 4 Left TZ 8mm - low volume Elevated PSA 06/12 4.1 on finasteride Prostate Volume 100gm Histologic type: Adenocarcinoma, acinar type [place] score: 3+3=6 (right apex lateral) 10% single core Elevated PSA 06/12 4.1 F 12% calculated PCP T risk greater than 5% high-grade PSA whilst on finasteride Prostate ultrasound 100 cc volume Family history of prostate cancer Erectile dysfunction Response to oral on demand medications PFSH Medical History (Updated 06/28/24 @ 12:53 by Karen Mcintosh MD) History of COVID-19 Erectile dysfunction Dyslipidemia Surgical History H/O umbilical hernia repair History of colonoscopy History of removal of cyst History of laparoscopic cholecystectomy Family History Father Prostate cancer Mother CVD (cardiovascular disease) Maternal Uncle Colon cancer Paternal Uncle Colon cancer Social History (Updated 06/28/24 @ 12:42 by Karen Mcintosh MD) Housing: House Alcohol intake: former Patient Tobacco Use Status: Never used Tobacco e-Cigarette/Vaping Use: Never Used Second Hand Smoke Exposure: No service: No Current occupational status: unemployed Current occupational exposures/hazards: No Cognitive needs: No Hearing needs: No Vision needs: Yes Review of Systems Const All systems reviewed & are unremarkable except as noted in HPI and below Reports no additional complaints Resp Reports no additional complaints GI Reports no additional complaints Reports as per HPI Musc Reports no additional complaints Physical Exam Telemedicine evaluation Appropriate responses Regular breathing rate and rhythm HEENT Head: Yes normal to inspection Ears: hearing grossly normal bilaterally Eyes General: appearance normal, both eyes and all related structures Neck Neck: Yes normal visual inspection Chest Chest palpation & inspection: normal inspection of the chest Resp Effort & Inspection: normal respiratory effort and able to speak in complete sentences Telehealth Telehealth Telehealth Platform: IPexpert Location of provider rendering services: practice address Location of patient: address on file Patient Identification confirmed using: Name, : Yes Telehealth method: video Patient verbally consented to treatment: Yes Patient verbally consented to billing insurance company: Yes Patient informed of any privacy concerns related to visit: Yes Minutes spent on Phone/Video with Pt.: 15 Assessment & Plan Assessment & Plan (1) Erectile dysfunction: Code(s): N52.9 - Male erectile dysfunction, unspecified Category: Medical (2) Prostate cancer: Code(s): C61 - Malignant neoplasm of prostate Category: Medical Plan 6m f/u PSA restart finasteride Orders: Orders PSA,Total (Free>4and<10) 6 Months C61 - Malignant neoplasm of prostate Medications: Refilled finasteride 5 mg PO DAILY 90 days 90 tabs 3RF N32.0 - Bladder-neck obstruction Patient Instructions: This note is constructed using voice recognition software. While every effort has been made to ensure accuracy sample book maker errors may have been included. Imaging studies, laboratory and physical exam results were discussed and reviewed in detail. No major barriers to patient understanding were identified. An opportunity to ask questions regarding the treatment plan was provided. All questions were answered. The patient expressed understanding and agreement with the above treatment plan. The patient is aware they should contact our office by phone for worsening of their current condition or the appearance of new urologic symptoms. Compliance is encouraged with any medications and followup testing that is ordered. It is a privilege to participate in the urologic care of your patient. If you have any questions or concerns regarding treatment for the above conditions, or other urologic issues, please do not hesitate to contact me. The office telephone contact is [phone]. Sincerely, Dr Harmeet Byrnes MD, [facility] - Urology Compassionate Specialist Care for the Genitourinary System Coding Level of Care Code Tele Est Pt Level 3 (63457) Complex EM visit Add On G2211 Diagnoses Erectile dysfunction N52.9 Prostate cancer C61
== END 2024-09-08 10:37 | disposition home or self-care (01) ==
LOC: HO.HUSH 09:23
PROVIDERS: PCP Internal Medicine; Visit Provider Urology
DX: N52.9 Male erectile dysfunction, unspecified (principal); C61 Malignant neoplasm of prostate
CPT/HCPCS: 99213; G2211

== ENCOUNTER 2025-03-01 06:35 | Outpatient (REF) | payer OTHER, SELFPAY ==
--- OUTSIDE RECORDS SUMMARY | 2025-03-01 06:37 | XMS_ITS | Clinical Summary ---
Author Organization [facility] Address [address] [place] [address] Care Team Providers Care Christmas Tree Contractor Name Role Phone Unavailable Primary Care Provider Unavailabl e Source Comments PLEASE NOTE, if this patient is a minor, it may be UNLAWFUL to discuss sensitive information that is contained in these records (such as FAMILY PLANNING, MENTAL HEALTH or SUBSTANCE ABUSE) with the minor patient's parent or other person without the patient's specific authorization.[facility] Immunizations Immunization Administration Dates Next Due Moderna COVID-19 Vaccine, [...] Health Maintenance Due Date Last Done Comments Anxiety Screening 1966 Diabetes Screening 1966 Hepatitis C Screening 1966 Lipid Screening 1966 Tobacco Screening 1966 HIV Screening 1981 Hypertension Screening (#1) 02/01/1984 Imm-DTaP/Tdap/Td (1 - Tdap) 1985 Imm-Hepatitis B (1 of 3 - 19 + 3-dose series) 1985 CT Colonography 2011 Colonoscopy 2011 Colorectal Cancer Screening 2011 FIT/gFOBT 2011 Fecal DNA 2011 Flexible Sigmoidoscopy 2011 Imm-Pneumococcal 50+ (1 of 1 - PCV) 02/01/2016 Imm-Zoster, Recombinant (1 of 2) 02/01/2016 Alcohol and Drug Screen 06/21/2024 Depression Annual Screen 06/21/2024 [id number] (3 - season) 2025 021, 09/23/2020 Imm-Influenza (#1) 2025 03/03/2020, 1 06/25/2018, 07/25/2017, Additional history exists Insurance [facility] Member Subscriber Plan / Payer (Ef fective 2020-Present) Name:Tristin Chaney Relation to Subscriber:Self Name:Tristin Chaney Payer ID:[id number] Group ID:Not on file Type:Medicaid Address: [facility] [address] [place] [address]
[2025-03-01 08:15] LABS: PSA,Total (Free>4and<10) 3.25 ng/mL (0.00-4.00)
== END 2025-03-01 06:36 | disposition home or self-care (01) ==
LOC: HO.LAB 06:35
PROVIDERS: PCP Internal Medicine; Visit Provider Urology
DX: C61 Malignant neoplasm of prostate (principal)
CPT/HCPCS: 36415; 84153

== ENCOUNTER 2025-03-13 08:53 | Outpatient (AMB) | payer OTHER, SELFPAY ==
--- NOTE | 2025-03-13 08:55 | MHC.OFFVIS ---
Intake Visit Reasons: 6m/PSA Intake Note: patient presents today for: 6mo follow up urology medications: finasteride blood thinners: none labs done 03/01/25: t-PSA 3.25 Speech Assistant Required: No Accompanied by: Self / Same As Patient Allergies No Known Allergies (No Known Allergies*) Allergy (Verified 03/13/25 08:56) HPI Comments Details: Tristin is a pleasant Nigerien-speaking male. He is a patient of Dr. Melissa. He is seen for the following urologic conditions - erectile dysfunction - elevated PSA Nigerien translation provided by qualified durable medical equipment technician Continue good response PSA - 03/14 2.1, 03/15 3.2 Six-month follow-up PSA tele Plan repeat biopsy at 2 years Prostate Cancer - low volume, low risk, Grade Group 1 - 07/2023 PSA 03/14 2.1 on finasterdie, 09/12 5.9 off finasteride, 03/15 3.2 MRI 10/12 42gm prostate, PIRADS 4 Left TZ 8mm - low volume Elevated PSA 06/12 4.1 on finasteride Prostate Volume 100gm Histologic type: Adenocarcinoma, acinar type Shruthi score: 3+3=6 (right apex lateral) 10% single core Elevated PSA 06/12 4.1 F 12% calculated PCP T risk greater than 5% high-grade PSA whilst on finasteride Prostate ultrasound 100 cc volume Family history of prostate cancer Erectile dysfunction Response to oral on demand medications PFSH Medical History (Updated 06/28/24 @ 12:53 by Karen Mcintosh MD) History of COVID-19 Erectile dysfunction Dyslipidemia Surgical History H/O umbilical hernia repair History of colonoscopy History of removal of cyst History of laparoscopic cholecystectomy Family History Father Prostate cancer Mother CVD (cardiovascular disease) Maternal Uncle Colon cancer Paternal Uncle Colon cancer Social History (Updated 06/28/24 @ 12:42 by Karen Mcintosh MD) Housing: House Alcohol intake: former Patient Tobacco Use Status: Never used Tobacco e-Cigarette/Vaping Use: Never Used Second Hand Smoke Exposure: No service: No Current occupational status: unemployed Current occupational exposures/hazards: No Cognitive needs: No Hearing needs: No Vision needs: Yes Review of Systems Const Denies chills and Denies fever(s) Card Reports no additional complaints and Denies syncope Resp Denies cough GI Denies abdominal pain and Denies heartburn Reports as per HPI and Denies change in libido Neuro Denies syncope Psych Denies change in libido Endo Denies change in libido Physical Exam Const General: cooperative, healthy appearing, comfortable and no acute distress Orientation/consciousness: patient oriented x3 HEENT Face and sinus: Yes normal facial exam Mouth: moist mucous membranes Neck Neck: Yes normal visual inspection, Yes full ROM and Yes trachea midline Chest Chest palpation & inspection: normal inspection of the chest Resp Effort & Inspection: normal respiratory effort, able to speak in complete sentences and no respiratory distress GI Inspection: Yes normal to inspection Back/Spine/Pelvis Cervical Spine: normal cervical lordosis Thoracic/Lumbar Spine: thoracic and lumbar spine normal to inspection Skin General skin exam: no rashes or lesions noted Neuro General: patient oriented x3, gait normal, tone normal and moves all extremities Extrem General: Yes normal to inspection and Yes capillary refill normal Assessment & Plan Assessment & Plan (1) Prostate cancer: Code(s): C61 - Malignant neoplasm of prostate Category: Medical Plan Continue finasteride Patient Instructions: This note is constructed using voice recognition software. While every effort has been made to ensure accuracy senior product designer errors may have been included. Imaging studies, laboratory and physical exam results were discussed and reviewed in detail. No major barriers to patient understanding were identified. An opportunity to ask questions regarding the treatment plan was provided. All questions were answered. The patient expressed understanding and agreement with the above treatment plan. The patient is aware they should contact our office by phone for worsening of their current condition or the appearance of new urologic symptoms. Compliance is encouraged with any medications and followup testing that is ordered. It is a privilege to participate in the urologic care of your patient. If you have any questions or concerns regarding treatment for the above conditions, or other urologic issues, please do not hesitate to contact me. The office telephone contact is [phone]. Sincerely, Dr Harmeet Byrnes MD, [facility] - Urology Compassionate Specialist Care for the Genitourinary System Coding Level of Care Code Est Pt Level 3 (84683) Complex EM visit Add On G2211 Diagnoses Prostate cancer C61
--- OUTSIDE RECORDS SUMMARY | 2025-03-13 10:07 | XMS_ITS | Clinical Summary ---
Author Organization [facility] Address [address] [place] [address] Care Team Providers Care Brass Molder Helper Name Role Phone Unavailable Primary Care Provider [...] Drug Screen 06/21/2024 Depression Annual Screen 06/21/2024 [id number] (3 - season) 2025 021, 09/23/2020 Imm-Influenza (#1) 2025 03/03/2020, 1 06/25/2018, 07/25/2017, Additional history exists Insurance [facility] [employer] [facility] Member Subscriber Plan / Payer (Ef fective 2020-Present) Name:Tristin Chaney Relation to Subscriber:Self Name:Tristin Chaney Payer ID:[id number] Group ID:Not on file Type:Medicaid Address: [facility] [address] [place] [address]
== END 2025-03-13 09:29 | disposition home or self-care (01) ==
LOC: HO.HUSH 08:54
PROVIDERS: PCP Internal Medicine; Visit Provider Urology
DX: C61 Malignant neoplasm of prostate (principal)
CPT/HCPCS: 99213

== ENCOUNTER → 2025-03-13 08:53 | Outpatient (BNVA) | payer OTHER, SELFPAY | PROVIDERS: PCP Internal Medicine; Visit Provider Urology | DX: C61 Malignant neoplasm of prostate (principal) | CPT/HCPCS: 99212 ==